=== PATIENT | female | born 1935 | race Caucasian/White ===

== ENCOUNTER 2022-02-06 10:10 | Outpatient (CLI) | payer MEDICARE, BC, SELFPAY ==
--- NOTE | 2022-02-06 11:00 | CRLHL7_ITS ---
For Patients: As a result of the Century Cures Act, medical imaging exams and procedure reports are released immediately into your electronic medical record. You may view this report before your referring provider. If you have questions, please contact your health care provider. Indication: FOLLOW UP COLORECTAL CANCER Technique: Postcontrast CT chest, abdomen and pelvis. 76 cc Isovue 370 intravenous contrast. Please note that all CT scans at this facility use dose modulation, iterative reconstruction, and/or weight-based dosing when appropriate to reduce radiation dose to as low as reasonably achievable. Comparison: 10/31/2021, 08/30/2021 Findings: In the chest, the left thyroid lobe is heterogeneous and enlarged, as before. Similar appearance of several subcentimeter mediastinal lymph nodes in the pretracheal region measuring up to 9 millimeters. No hilar adenopathy. Normal axillary lymph nodes. No suspicious pulmonary nodule. No infiltrate or edema. No effusion or pneumothorax. Mild dependent atelectasis/scarring. Degenerative disc disease. No fracture. No intrinsic osseous lesion. In the abdomen, there is a stable subcentimeter cyst at the inferior aspect of the liver. Small focus of fat deposition within the liver adjacent to the falciform ligament. No suspicious hepatic lesion. Calcified gallstone in the gallbladder lumen measuring 1.4 cm is unchanged. No biliary obstruction or gallbladder wall thickening. Unremarkable pancreas. The spleen is normal. Atherosclerotic disease in the aorta. No aneurysm. Right kidney and right adrenal gland normal. Postop changes left nephrectomy no retroperitoneal or mesenteric adenopathy. In the pelvis, there are postoperative changes of right hemicolectomy with intact anastomosis. No bowel obstruction, free air or free fluid. Uterine pessary device again noted. Stable small left ovarian cyst. Sigmoid diverticulosis. No diverticulitis. Impression: No significant change since the most recent study. Stable numerous subcentimeter mediastinal lymph nodes. No enlarged lymph nodes are present within the chest, abdomen and pelvis. No hepatic lesion. Status post right hemicolectomy and left nephrectomy. No suspicious pulmonary nodule. Please note that all CT scans at this facility use dose modulation, iterative reconstruction, and/or weight-based dosing when appropriate to reduce radiation dose to as low as reasonably achievable. Dictated by Miles Clements MD @ 02/06/2022 12:00:10 PM (Electronically Signed)
== END 2022-02-06 10:11 | disposition home or self-care (01) ==
LOC: CT 10:12
PROVIDERS: PCP Family Medicine; Visit Provider Internal Medicine Hematology & Oncology
DX: C18.9 Malignant neoplasm of colon, unspecified (principal)
CPT/HCPCS: 36415; 71260; 74177; 80053; 82378; 82728; 85025; Q9967

== ENCOUNTER 2022-03-04 08:12 | Outpatient (CLI) | payer MEDICARE, BC, SELFPAY ==
--- OUTSIDE RECORDS SUMMARY | 2022-03-04 08:15 | XMS_ITS | Clinical Summary ---
:1935 Author Organization [facility] Address [place] [address] Care Team Providers Name Role Phone Skinny Jean Baptiste RN Unavailable Deepa Kunz MD Unavailable Keyla Golden MD Primary Care Provider [phone] Allergies No known active allergies Medications Medication Sig Dispensed Refills Start Date End Date Status acetaminophen (TYLENOL) Take 31.3 mL 118 mL 0 03/01/2021 Active 160 mg/5 mL (1000 mg) by suspensionIndications: mouth every 6 Malignant neoplasm of hours if needed. 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 Encounters Date Type Specialty Care Team Description 12/17/2021 Telephone Bharat Alvares MD Kendra ointment from Last 3 Months Immunizations Name Administration Dates Next Due AMB Influenza, IIV3 (Age >=3 years)(Flu 03/27/2009 Clinic Only) Influenza, IIV3 (Age >=3 years) 05/24/2006, 04/21/2004, 03/24 Family History Medical History Relation Name Comments Heart Disease Father rhumatic fever a s child Arthritis Mother Relation Name Status Comments Father Mother Social History Tobacco Use Types Packs/Day Years Used Date Never Smoker Smokeless Tobacco: Never Used Tobacco Cessation: Counseling Given: No Alcohol Use Standard Drinks/Week Comments Yes 1.7 (1 standard drink = 0.6 oz pure alco hol) rarely Alcohol Habits Answer Date Recorded How often do you have a drink containing alcohol? Not asked How many drinks containing alcohol do you have on a typical Not asked day when you are drinking? How often do you have six or more drinks on one occasion? No t asked Comment: rarely 01/17/2021 Sex Assigned at Date Recorded Not on file Obstetrics History Para Term AB IAB SAB Ectopic Multiple Living Live Births 2 Date Outcome GA Total Labor/2nd/3rd Weight Sex Delivery Anes PTL Ana Laura A 1 A5 Name Clin Labor Last Filed Vital Signs Vital Sign Reading Time Taken Comments Blood Pressure 176/72 03/09/2021 10:44 AM CDT Pulse 80 03/09/2021 10:44 AM CDT Temperature 36.9 ??C (98.4 ??F) 03/09/2021 10:44 AM CDT Respiratory Rate 18 03/01/2021 8:00 AM CDT Oxygen Saturation 92% 03/01/2021 8:00 AM CDT Inhaled Oxygen Concentration - - Weight 69.1 kg (152 lb 6.4 oz) 03/09/2021 10:44 AM CDT Height 165.1 cm (5' 5) 03/09/2021 10:44 AM CDT Body Mass Index 25.36 03/09/2021 10:44 AM CDT Plan of Treatment Health Maintenance Due Date Last Done Comments Tdap 10/16/1946 Depression screening for age 12+ 1948 Zoster (shingles) series for age 0410/15/1986 50+ (1 of 2) Medicare Wellness for age 65+ 2001 Pneumococcal series for age 65+ (1 2001 - PCV) Tetanus booster 01/14/2021 01/14/2011 (Declined) COVID-19 vaccine series (4 - 11/30/2021 08/02/2021, 021, Booster for Pfizer series) 08/08/2020 Influenza for age 65+ 02/21/2022 03/27/2009, 05/24/2006, 04/21/2004, Additional history exists BMI (ht and wt on same day) for 03/09/2022 03/09/2021 age 18+ DEXA/DXA scan for age 65+ Completed 07/07/2009 Results Not on filefrom Last 3 Months Insurance Payer Benefit Plan / Subscriber ID Effective Dates Phone Addre ss Type Group MEDICARE PART A MEDICARE PART A [id number] 2001-Presen ATTN: CLAIMS - HB USE ONLY HB ONLY t [address] [facility] [address] MEDICARE PART B MEDICARE PART B [id number] 2002-Presen ATTN: CLAIMS - HB USE ONLY HB ONLY t [address] [place] [address] BLUE [employer]OSS BLUE [place]OSS [id number] 2016-Presen [address] [address] [place] [id number] BLUE [place]OSS [place] BLUE [place] [id number] 2016-Presen [address] [address] [place] [id number] Advance Directives Latest Code Status on File Code Status Date Activated Date Inactivated Comments Full Code 02/22/2021 11:44 AM 03/01/2021 2:32 PM Code Status Discussion: Not Discussed Care Teams Element Winding Machine Tender Relationship Specialty Start Date End Date Keyla Golden MD PCP - General Family Practice 01/18/211999 [place] [address] Skinny Jean Baptiste, RN Nurse Navigator Registered Nurse 01/18/[address] [place] [id number] Deepa Kunz MD Surgery - General 01/18/[address] [place] [id number]
--- OUTSIDE RECORDS SUMMARY | 2022-03-04 08:15 | XMS_ITS | Encounter Summary ---
:1935 Author Care Team Providers Name Role Phone Keyla Golden MD Primary Care Provider [phone] Reason for Visit Follow up - Review imaging Assessment and Plan 1. Malignant tumor of kidney Good news that her abdomen was clear. 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 For this, I'll have her f/u wit h Med Onc. I'll have the nurse coordinator help with this. Her next imaging will be dependent on Med Onc input. We will likely repeat imaging in 3-6 months. Discussion Note: None recorded.Patient educational handouts: No information available. Plan of Care Reminders Provider Appointments None recorded. ? ? Lab None recorded. ? ? Referral None recorded. ? ? Procedures None recorded. ? ? Surgeries None recorded. ? ? Imaging None recorded. ? ? Medications Name Start Date ? ? fluticasone propionate 50 mcg/actuation nasal spray,braden spension ? INHALE 2 SPRAYS INTO EACH NOSTRIL ONCE DAILY. multivitamin ? Vitamin D3 ? Medications Administered None recorded. Vitals Height Weight BMI 5 ft 5 in 155 lbs 25.8 kg/m2 Results Lab Results None recorded. Allergies Code Code System Name Reaction Severity Onset NKDA ? ? ? Problems Name Status Onset Date Source ? 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 Malignant Tumor of Kidney Active 01/07/2022 ? Procedures Date Name Performed by ? 11/21/2020 Colonoscopy Information not avai lable 12/27/2021 CT, Chest + Abdomen + Pelvis, W/ Contras t Information not available Vaccine List None recorded. Social History Tobacco Smoking Status Never Smoker What was the date of your most recent tobacco screening? What is your level of alcohol consumption? Occasional What is your level of caffeine consumption? Occasional Family History Relation Problem Onset Age of Age Notes Father No current problems or (No Information) N/A ( No Notes) disability Mother No current problems or (No Information) N/A ( No Notes) disability Functional Status Unknown. Past Encounters 01/07/2022 Malignant Tumor of Kidney Warren Squires MD: [address] [place] [address], Ph. 12/12/2021 Atrophic Vaginitis Warren Squires MD: [address] [place] [address], Ph. History of Present Illness Note: <div>Here to f/u for her kidney cancer. She had a CT scan last month that showed a clear renal fossa and retroperitoneum. There was, however, mediastinal lymphadenopathy; max size 7mm. </div><div>
</div><div>She is active and overall healthy. She has a grandmother that lived to [facility]. </div><div>
</div> Review of Systems ? Comprehensive General Adult ROS Reported By: Patient Constitutional: Constitutional: no fever, no chills Eyes: Eyes: no dry eyes, no vision change, no irritation Endocrine: Endocrine: no fatigue, no in creased thirst Cardiovascular: Cardiovascular: no chest sergio n, no palpitations Integumentary: Skin: no rashes, no change i n skin color Respiratory: Respiratory: no wheezing, no cough, no shortness of breath Genitourinary: Genitourinary: no incontinen ce, no difficulty urinating Physical Exam ? Notes: <div>Standard Measurements: Patient was moderately overweight.
General Appearance: Well nourished. In no acute distress.
Back: No costovertebral angle tenderness.
Abdomen : No mass was palpated in the abdomen.
Neurological: Cognitive functioning was normal. No confusion or disorientation.
Skin: No visible lesions
Psych: Normal mood and affect</div>
--- OUTSIDE RECORDS SUMMARY | 2022-03-04 08:15 | XMS_ITS | Encounter Summary ---
:1935 Author Care Team Providers Name Role Phone Keyla Golden MD Primary Care Provider [phone] Reason for Visit None recorded. Assessment and Plan 1. Atrophic vaginitis ? urinalysis, dipstick ? Estrace 0.01% (0.1 mg/gram) vaginal c ream Discussion Note: None recorded.Patient educational handouts: No information available. Plan of Care Reminders Provider Appointments None recorded. ? ? Lab Urinalysis, Dipstick 12/12/2021 ? Referral None recorded. ? ? Procedures None recorded. ? ? Surgeries None recorded. ? ? Imaging None recorded. ? ? Medications Name Start Date ? ? fluticasone propionate 50 mcg/actuation nasal spray,braden spension ? INHALE 2 SPRAYS INTO EACH NOSTRIL ONCE DAILY. multivitamin ? Vitamin D3 ? Medications Administered None recorded. Vitals Height Weight BMI 5 ft 5 in 160 lbs 26.6 kg/m2 Results Lab Results Date Name Specimen Result Interpretation Description Value Range Status Address ? 12/12/2021 Urinalysis, ? Color-Status Straw ? ? Dipstick ? ? ? Clarity-Status Slightly Cloudy ? Glucose-Status Negative ? Bilirubin-Status Negative ? Ketones-Status Negative ? Sp [place]-Status 1.020 ? pH-Status 6.0 ? Protein-Status 5.0 ? Urobilinogen-Status 0.2 ? Nitrates-Status negative ? Blood-Status Small ? Leuko-Status Large ? Specimen Type Voided ? ? Allergies Code Code System Name Reaction Severity Onset NKDA ? ? ? Problems Name Status Onset Date Source ? 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 Malignant Tumor of Kidney Active 01/07/2022 ? Procedures Date Name Performed by ? 11/21/2020 Colonoscopy Information not avai lable Vaccine List None recorded. Social History Tobacco [...] Notes) disability Functional Status Unknown. Past Encounters 12/12/2021 Atrophic Vaginitis Warren Squires MD: [address] [place] [address], Ph. History of Present Illness None recorded. Review of Systems ? Comprehensive General Adult ROS Reported By: Patient Constitutional: Constitutional: no fever, no chills Eyes: Eyes: no dry eyes, no vision change, no irritation Endocrine: Endocrine: no fatigue, no in creased thirst Cardiovascular: Cardiovascular: no chest sergio n, no palpitations Integumentary: Skin: no rashes, no change i n skin color Respiratory: Respiratory: no wheezing, no cough, no shortness of breath Gastrointestinal: Gastrointestinal: no abdomin al pain, no nausea, no vomiting, no constipation, no GERD Musculoskeletal: Musculoskeletal: no neck sergio n, no back pain Neurologic: Neurologic: no tremor, no di zziness, no numbness, no headaches Genitourinary: Genitourinary: no difficulty urinating, urinary loss of control ENMT: Ears: no ear pain. Mouth/Thr oat: no sore throat Allergic/Immunologic: Allergy/Immunologic: no itch ing, no hives Hematologic/Lymphatic: Hematologic/Lymphatic no swo llen glands, no excessive bleeding Psychiatric: Psych: no hallucinations, (n ormal) sleep disturbances: mismatch of sleep / wake justus edule with lifestyle needs Physical Exam None recorded.
--- OUTSIDE RECORDS SUMMARY | 2022-03-04 08:15 | XMS_ITS ---
:1935 Author Care Team Providers Name Role Phone ZAY LEVY MD Primary Care Provider [phone] Allergies Code Code System Name Reaction Severity Status Onset NKDA ? Medications Name Status Start Date Stop Date ? ? azithromycin 250 mg tablet Completed ? 09/26 TAKE 2 TABLETS BY MOUTH ON DAY 1, THEN 1 TABLET DAILY ON DAYS 2 -5. cefuroxime axetil 500 mg tablet Completed ? 01/07/2022 TAKE ONE TABLET BY MOUTH TWICE DAILY Estrace 0.01% (0.1 mg/gram) vaginal cream Completed ? 01/07/2022 place 1 gram (pea size) amount intravaginally twice per week fluticasone propionate 50 mcg/actuation nasal spray,suspension A ctive ? Not available INHALE 2 SPRAYS INTO EACH NOSTRIL ONCE DAILY. metronidazole 500 mg tablet Completed ? 02/22 Take as indicated on bowel prep instructions multivitamin Active ? Not available neomycin 500 mg tablet Completed ? Take as indicated on bowel prep instructions. ondansetron 4 mg disintegrating tablet Completed ? 03/15/2021 Take as indicated on bowel prep instructions. ondansetron 8 mg disintegrating tablet Completed ? 01/18/2021 DISSOLVE ONE TABLET IN MOUTH THREE TIMES DAILY NEEDED oxycodone 5 mg tablet Completed ? 03/15/2021 prednisone 20 mg tablet Completed ? 01/08/20 TAKE ONE TABLET BY MOUTH ONE TIME DAILY Vitamin D3 Active ? Not available Problems Name Status Onset Date Source ? Malignant Tumor of Kidney Unknown 03/15/2021 ? 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 Malignant Tumor of Kidney Active 01/07/2022 ? Procedures Date Name Performed by ? 11/21/2020 Colonoscopy Information not avai lable 06/05/2021 CT, Chest + Abdomen + Pelvis, W/ Informa tion not available Contrast 09/26/2021 CT, Chest + Abdomen + Pelvis, W/ [facility] Radiology Department Contrast [address] [place] [address] ([address]) 12/27/2021 CT, Chest + Abdomen + Pelvis, W/ Informa tion not available Contrast Results Lab Results Date Name Specimen Result Interpretation Description Value Range Status Address ? 12/12/2021 Urinalysis, ? Color-Status Straw ? ? Dipstick ? ? ? Clarity-Status Slightly Cloudy ? Glucose-Status Negative ? Bilirubin-Status Negative ? Ketones-Status Negative ? Sp [place]-Status 1.020 ? pH-Status 6.0 ? Protein-Status 5.0 ? Urobilinogen-Status 0.2 ? Nitrates-Status negative ? Blood-Status Small ? Leuko-Status Large ? Specimen Type Voided ? ? 09/26/2021 Urinalysis, ? pH-Status 7.0 ? ? Dipstick ? ? ? Blood-Status Trace ? Leuko-Status Small ? ? 09/26/2021 Urinalysis, ? No observation ? ? ? Dipstick recorded. 09/26/2021 Urinalysis, ? No observation ? ? ? Dipstick recorded. 07/31/2021 Urinalysis, ? Color-Status Yellow ? ? Dipstick ? ? ? Clarity-Status Clear ? Glucose-Status Negative ? Bilirubin-Status Negative ? Ketones-Status Negative ? Sp [place]-Status 1.015 ? pH-Status 7.5 ? Urobilinogen-Status 0.2 ? Nitrates-Status negative ? Blood-Status Trace ? Leuko-Status Negative ? Specimen Type Voided ? Performed by nichelle buckner RN ? Total Urine Volume 30cc ? ? 07/31/2021 Urinalysis, ? No observation ? ? ? Dipstick recorded. 06/06/2021 Urinalysis, ? pH-Status 7.5 ? ? Dipstick ? ? ? Nitrates-Status negative ? Blood-Status Trace ? Leuko-Status Negative ? Specimen Type Voided ? ? 06/06/2021 Urinalysis, ? No observation ? ? ? Dipstick recorded. 02/22/2021 Surgical Pathology ? No observation ? ? ? Study recorded. Past Encounters 01/07/2022 Malignant Tumor of Kidney Warren Squires MD: [address], [place] [address], Ph. 12/12/2021 Atrophic Vaginitis Warren Squires MD: [address], [place] [address], Ph. 09/26/2021 Prolapse of Female Genital Organs; Malig nant Tumor of Kidney; Female Stress Incontinence Tracie Estrada, PAC: [address], [place] [address], Ph. 07/31/2021 Malignant Tumor of Kidney; Female Stress Incontinence; Prolapse of Female Genital Organs Augusta Bermudez MD: [address], [place] [address], Ph. 07/11/2021 Female Stress Incontinence; Increased Fr equency of Urination; Malignant Tumor of Kidney GET Pederson: [address], [place] [address], Ph. 06/06/2021 Female Stress Incontinence; Increased Fr equency of Urination; Malignant Tumor of Kidney Martha Prado PA: [address], [place] [address], Ph. 03/15/2021 Malignant Tumor of Kidney Warren Squires MD: [address], [place] [address], Ph. 01/18/2021 Renal Mass Warren Squires MD: [address], [place] [address], Ph. Social History Tobacco Smoking Status Never Smoker Vaccine List None recorded. Plan of Care Reminders Provider Appointments None recorded. ? ? Lab None recorded. ? ? Referral None recorded. ? ? Procedures None recorded. ? ? Surgeries None recorded. ? ? Imaging None recorded. ? ? Vitals 01/07/2022 10:40AM ESTABLISHED 10 Height Weight BMI 5 ft 5 in 155 lbs 25.8 kg/m2 12/12/2021 12:00PM ESTABLISHED 30 Height Weight BMI 5 ft 5 in 160 lbs 26.6 kg/m2 09/26/2021 02:40PM ESTABLISHED 20 Height Weight BMI 5 ft 5 in 160 lbs 26.6 kg/m2 07/31/2021 11:30AM PROLAPSE CONSULT 30 Height Weight BMI 5 ft 5 in 160 lbs 26.6 kg/m2 07/11/2021 01:30PM ESTABLISHED 30 Height Weight BMI 5 ft 5 in 160 lbs 26.6 kg/m2 06/06/2021 03:30PM ESTABLISHED 30 Height Weight BMI 5 ft 5 in 160 lbs 26.6 kg/m2 03/15/2021 11:00AM POST OP 10 Height Weight BMI 5 ft 5 in 160 lbs 26.6 kg/m2 01/18/2021 11:30AM NEW PATIENT 20 Height Weight BMI 5 ft 5 in 160 lbs 26.6 kg/m2
== END 2022-03-04 08:13 | disposition home or self-care (01) ==
LOC: OP CLINIC 08:13
PROVIDERS: PCP Family Medicine; Visit Provider Surgery
DX: Z85.038 Personal history of other malignant neoplasm of large intestine (principal); K63.5 Polyp of colon; K57.30 Diverticulosis of large intestine without perforation or abscess without bleeding
CPT/HCPCS: 45380; 45385; 88305; 99153; J2250; J3010

== ENCOUNTER 2022-03-20 09:32 | Day surgery (SDC) | payer MEDICARE, BC, SELFPAY ==
[2022-03-20] MEDS: TETRACAINE 0.5% OPHTH 1 DROP EYE-RIGHT ×2 (09:55→10:05)
[2022-03-20 09:56] VITALS: BMI 29.5
[2022-03-20] MEDS: KETOROLAC OPHTH 0.5% 1 DROP EYE-RIGHT ×2 (10:03→10:11)
[2022-03-20 10:06] VITALS: BP 133/63; PULSE 69; RESP 20; TEMP 36.5; O2SAT 98
[2022-03-20] MEDS: SODIUM CHLORIDE 0.9 % (FLUSH) 10 ML SYRINGE IVF (10:15)
[2022-03-20] MEDS: TETRACAINE 0.5% OPHTH 2 DROP EYE-RIGHT (10:55)
[2022-03-20] MEDS: BALANCED SALT IRRIG SOLN 15 ML EYE-RIGHT (11:01)
[2022-03-20] MEDS: ERYTHROMYCIN OPHTH OINT 3.5 GM 1 APPLIC EYE-RIGHT (11:25)
--- NOTE | 2022-03-20 11:32 | W.ANESCHARGE ---
Anesthesia Charges Start Date/Time Anesthesia Start Date: 03/20/22 Anesthesia Start Time: 10:50 Stop Date/Time Anesthesia Stop Date: 03/20/22 Anesthesia Stop Time: 11:30 Summary Emergency: No Extremes of Age: Over 70-CPT 39424
[2022-03-20 11:42] VITALS: BP 173/79; PULSE 69; RESP 16; TEMP 36.6; O2SAT 99
--- NOTE | 2022-03-26 08:48 | P.OPTPRC_ITS ---
Procedure Note Date of procedure: 03/20/22 Will [facility] bill your pro fee for this procedure?: Yes Procedure Description: SURGEON: Margarita Hester MD PREOPERATIVE DIAGNOSIS: Nuclear sclerotic cataract, right eye. POSTOPERATIVE DIAGNOSIS: Nuclear sclerotic cataract, right eye. NAME OF OPERATION: Phacoemulsification of cataract with posterior chamber intraocular lens implantation in the right eye. ANESTHESIA: Topical. ESTIMATED BLOOD LOSS: Less than 2 cc. COMPLICATIONS: None. PATHOLOGY SPECIMEN: None. INDICATIONS: See consult note for details. The risks, benefits and alternatives of the procedure were explained to the patient, who elected to proceed and s igned informed consent to do so. PROCEDURE: The patient was brought to the pre-holding area where the right eye was identified as the operative eye. I placed my initials above this eye. The patient received eye drops consisting of 0.5% tetracaine, 1% tropicamide, 10% phenylephrine, and 0.5% ketorolac. The patient was given 12.5 grams IV mannitol and a [place] balloon was placed for 8 minutes pre-operatively. The patient was then brought to the operating room where the right eye was again identified as the operative eye. The eye was prepped with Betadine and draped in the usual sterile ophthalmic fashion. A #15 super-sharp blade was used to create a paracentesis site. 1% non-preserved intracameral lidocaine was injected into the anterior chamber. Endocoat was injected into the anterior chamber. A 2.4 mm keratome was used to create a three-plane self-sealing incision 1 mm anterior to the temporal limbus. A cystotome was used to create an anterior capsular leaflet. The Utrata forceps were used to extend this to form a continuous curvilinear capsulorrhexis. Hydrodissection was performed. The cataract was removed with phacoemulsification using the [id number] technique. The irrigation and aspiration tip was used to remove the remaining cortex. Healon was injected into the capsular bag. An BAILEE ZCB00 intraocular lens of 25.0 diopters was injected into the capsular bag. The irrigation and aspiration tip was used to remove the remaining viscoelastic. Balanced salt solution on a cannula was used to hydrate the wound, and the wound was found to be watertight. The pupil was noted to be round. A small corneal abrasion was noted anterior to the incision, therefore erythromycin ophthalmic ointment was placed in the eye. DISPOSITION: The patient was taken to the recovery room and discharged to home in stable condition. The patient was informed of the corneal abrasion and instructed to use the erythromycin ophthalmic ointment 3 more times today. The patient was instructed to call me or go to the emergency department with any sudden change, including dramatic loss of vision, severe pain in the eye or eyebrow region, nausea, or vomiting. The patient will follow up in the clinic tomorrow morning. Surgeon: Margarita Hester MD
== END 2022-03-20 12:15 | disposition home or self-care (01) ==
LOC: OR 09:33
PROVIDERS: PCP Family Medicine; Visit Provider Ophthalmology
PROC: (CPT 66984; principal; 2022-03-20 09:45)
DX: H25.11 Age-related nuclear cataract, right eye (principal)
CPT/HCPCS: 66984; 00142; 99100; A9270; J2150; J2250; J3010; V2632

== ENCOUNTER 2022-04-03 10:16 | Day surgery (SDC) | payer MEDICARE, BC, SELFPAY ==
[2022-04-03] MEDS: KETOROLAC OPHTH 0.5% 1 DROP EYE-LEFT ×2 (10:25→10:30)
[2022-04-03] MEDS: TETRACAINE 0.5% OPHTH 1 DROP EYE-LEFT ×2 (10:25→10:30)
[2022-04-03 10:41] VITALS: BP 160/68; PULSE 65; RESP 16; TEMP 36.1; O2SAT 97; BMI 29.5
[2022-04-03] MEDS: SODIUM CHLORIDE 0.9 % (FLUSH) 10 ML SYRINGE IVF (10:50)
--- NOTE | 2022-04-03 11:37 | SUR.PREOP ---
ERICH APPLIED BY SURGEON AND INFLATED AT 1135.
[2022-04-03] MEDS: TETRACAINE 0.5% OPHTH 2 DROP EYE-LEFT (11:50)
[2022-04-03] MEDS: BALANCED SALT IRRIG SOLN 15 ML EYE-LEFT (11:56)
--- NOTE | 2022-04-03 11:57 | W.ANESCHARGE ---
Anesthesia Charges Start Date/Time Anesthesia Start Date: 04/03/22 Anesthesia Start Time: 11:47 Stop Date/Time Anesthesia Stop Date: 04/03/22 Anesthesia Stop Time: 12:22 Summary Emergency: No Extremes of Age: Over 71-CPT [id number]
--- NOTE | 2022-04-03 12:26 | W.ANESCHARGE ---
Anesthesia Charges Start Date/Time Anesthesia Start Date: 04/03/22 Anesthesia Start Time: 11:47 Stop Date/Time Anesthesia Stop Date: 04/03/22 Anesthesia Stop Time: 12:22 Summary Emergency: No Extremes of Age: Over 71-CPT 45027
[2022-04-03 12:28] VITALS: BP 164/70; PULSE 67; RESP 16; TEMP 36.2; O2SAT 99
--- NOTE | 2022-04-03 13:12 | W.PM.OPTPROC ---
Procedure Note Date of procedure: 04/03/22 Will [facility] bill your pro fee for this procedure?: Yes Procedure Description: SURGEON: Margarita Hester MD PREOPERATIVE DIAGNOSIS: Mature cataract, left eye. POSTOPERATIVE DIAGNOSIS: Mature sclerotic cataract, left eye. NAME OF OPERATION: Phacoemulsification of cataract with posterior chamber intraocular lens implantation in the left eye. ANESTHESIA: Topical. ESTIMATED BLOOD LOSS: Less than 2 cc. COMPLICATIONS: None. PATHOLOGY SPECIMEN: None. INDICATIONS: See consult note for details. The risks, benefits and alternatives of the procedure were explained to the patient, who elected to proceed and signed informed consent to do so. PROCEDURE: The patient was brought to the pre-holding area where the left eye was identified as the operative eye. I placed my initials above this eye. The patient received eye drops consisting of 0.5% tetracaine, 1% tropicamide, 10% phenylephrine, and 0.5% ketorolac. The patient was given 12.5 grams IV mannitol and a Honan balloon was placed for 8 minutes pre-operatively. The patient was then brought to the operating room where the left eye was again identified as the operative eye. The eye was prepped with Betadine and draped in the usual sterile ophthalmic fashion. A #15 super-sharp blade was used to create a paracentesis site. 1% non-preserved intracameral lidocaine was injected into the anterior chamber. Endocoat was injected into the anterior chamber. A 2.4 mm keratome was used to create a three-plane self-sealing incision 1 mm anterior to the temporal limbus. A cystotome was used to create an anterior capsular leaflet. The Utrata forceps were used to extend this to form a continuous curvilinear capsulorrhexis. Hydrodissection was performed. The cataract was removed with phacoemulsification using the fvclma-pup-zuxqtsa technique. The irrigation and aspiration tip was used to remove the remaining cortex. Healon was injected into the capsular bag. An BAILEE ZCB00 intraocular lens of 25 point diopters was injected into the capsular bag. The irrigation and aspiration tip was used to remove the remaining viscoelastic. Balanced salt solution on a cannula was used to hydrate the wound, and the wound was found to be watertight. The pupil was noted to be round. DISPOSITION: The patient was taken to the recovery room and discharged to home in stable condition. The patient was instructed to call me or go to the emergency department with any sudden change, including dramatic loss of vision, severe pain in the eye or eyebrow region, nausea, or vomiting. The patient will follow up in the clinic tomorrow morning. Surgeon: Margarita Hester MD
== END 2022-04-03 12:58 | disposition home or self-care (01) ==
PROVIDERS: PCP Family Medicine; Visit Provider Ophthalmology
PROC: (CPT 66984; principal; 2022-04-03 10:30)
DX: H25.89 Other age-related cataract (principal)
CPT/HCPCS: 66984; 00142; 99100; A9270; J2150; J2250; J3010; V2632

== ENCOUNTER 2022-05-27 14:47 | Emergency (ER) | payer MEDICARE, BC, SELFPAY ==
[2022-05-27 15:42] VITALS: BP 189/102; PULSE 80; RESP 14; TEMP 36.7; O2SAT 98; BMI 25.0
--- NOTE | 2022-05-27 15:46 | CRLHL7_ITS ---
For Patients: As a result of the Century Cures Act, medical imaging exams and procedure reports are released immediately into your electronic medical record. You may view this report before your referring provider. If you have questions, please contact your health care provider. Indication: Fall. Technique: Left wrist, 3 views Comparison: None. Findings: Bones: The bones are demineralized. Comminuted and impacted distal radial fracture appears intra-articular and shows dorsal angulation. Joint spaces: Diffuse degenerative changes. Soft tissues: Soft tissue swelling about the wrist. Impression: Distal radial fracture. Dictated by Sung Iglesias MD @ 05/27/2022 4:55:10 PM (Electronically Signed)
--- NOTE | 2022-05-27 15:49 | CRLHL7_ITS ---
For Patients: As a result of the Century Cures Act, medical imaging exams and procedure reports are released immediately into your electronic medical record. You may view this report before your referring provider. If you have questions, please contact your health care provider. INDICATION: Fall TECHNIQUE: CT head without contrast. COMPARISON: None FINDINGS: CSF spaces: Within normal limits for age. Brain parenchyma: The nunn-white differentiation is normal. No sign of mass, hemorrhage, or midline shift. Skull base and calvarium: The visualized paranasal sinuses and mastoid air cells demonstrate no acute or significant findings. The visualized orbits are grossly unremarkable. No skull fractures. Left periorbital hematoma IMPRESSION: No evidence of acute intracranial trauma. No orbital hematoma. Dictated by Miles Raza MD @ 05/27/2022 4:36:24 PM Please note that all CT scans at this facility use dose modulation, iterative reconstruction, and/or weight-based dosing when appropriate to reduce radiation dose to as low as reasonably achievable. Dictated by: Miles Raza MD @ 05/27/2022 16:36:29 (Electronically Signed)
[2022-05-27 17:02] VITALS: BP 168/74; PULSE 84; RESP 16; TEMP 36.7; O2SAT 99
--- NOTE | 2022-05-27 17:04 | ED.NURSE ---
vital signs rechecked.
--- NOTE | 2022-05-27 18:57 | ED.NURSE ---
did not want to wait for dc instructions. was verbally dc to home with daughter. has orthoglass splint in place and has a sling. understands that there will be a call from orthopedics for follow up. daughter reports that she will stay with her and understood the follow up from dr abreu.
--- OUTSIDE RECORDS SUMMARY | 2022-05-27 19:05 | XMS_ITS ---
:1935 Author Care Team Providers Name Role Phone ZAY LEVY MD Primary Care Provider [phone] Allergies Code Code System Name Reaction Severity [...] [facility] Radiology Department Contrast [address] [place] [address] (Work Place) 12/27/2021 CT, Chest + Abdomen + Pelvis, W/ Informa tion not available Contrast Results Lab Results Date Name Specimen Result Interpretation Description Value Range Status Address ? 12/12/2021 Urinalysis, ? Color-Status Straw ? ? Dipstick ? ? ? Clarity-Status Slightly Cloudy ? Glucose-Status Negative ? Bilirubin-Status Negative ? Ketones-Status Negative ? Sp [place]-Status 1.020 ? pH-Status 6.0 ? Protein-Status 5.0 [...] Bilirubin-Status Negative ? Ketones-Status Negative ? Sp [place]-Status 1.015 ? pH-Status 7.5 ? Urobilinogen-Status 0.2 [...] ? ? ? Study recorded. Past Encounters Encounter Date Diagnosis Provider 01/07/2022 Malignant Tumor of Kidney Warren house MD: [address], [place] [address], Ph. 12/12/2021 Atrophic Vaginitis Warren Squires MD: [address], [place] [address], Ph. 09/26/2021 Prolapse of Female Genital Organs; Tracie Estrada, PAC: [address] Malignant Tumor of Kidney; Female [address], [place], [place] Stress Incontinence [address], Ph. 07/31/2021 Malignant Tumor of Kidney; Female Lioudm trae Bermudez MD: [address] Stress Incontinence; Prolapse of [address], [place], [place] Female Genital Organs [address], Ph. 07/11/2021 Female Stress Incontinence; Martha cruz PA: [address] Increased Frequency of Urination; [address], [place], [place] Malignant Tumor of Kidney [address], Ph . 06/06/2021 Female Stress Incontinence; Martha cruz PA: [address] of Ur[address]; [address], [place], [place] Malignant Tumor of Kidney [address], Ph . 03/15/2021 Malignant Tumor of Kidney Warren house MD: [address], [place] [address], Ph. 01/18/2021 Renal Mass Warren Squires MD: [address], [place] [address], Ph. Social History Tobacco Smoking Status Never [...]
--- OUTSIDE RECORDS SUMMARY | 2022-05-27 19:05 | XMS_ITS | Clinical Summary ---
:1935 Author Organization [facility] [place] [address] Care Team Providers Name Role Phone Skinny Jean Baptiste RN Unavailable Deepa Kunz MD Unavailable Keyla Golden MD Primary Care Provider Allergies No known active allergies Medications Medication [...] Encounters Date Type Specialty Care Team Description 04/29/2022 Orders Only Scanner <No scans attac hed> 04/29/2022 Orders Only Scanner <No scans attac hed> 03/04/2022 Lab Requisition Kirstie Roe MD from Last 3 Months Immunizations Name Administration [...] 01/14/2011 (Declined) COVID-19 vaccine series (4 - 09/27/2021 08/02/2021, 021, Booster for Pfizer series) 08/08/2020 Influenza for age 65+ 02/21/2022 03/27/2009, 05/24/2006, 04/21/2004, Additional history exists BMI (ht and wt on same day) for 03/09/2022 03/09/2021 age 18+ DEXA/DXA scan for age 65+ Completed 07/07/2009 Procedures Procedure Name Priority Date/Time Associated Diagnosis Comme nts SCAN 04/29/2022 12:00 AM Results for this CORRESP-LABORATORY WHIPPED TOPPING FINISHER procedure are in RESULTS the results section. SCAN 04/29/2022 12:00 AM Results for this CORRESP-LABORATORY WHIPPED TOPPING FINISHER procedure are in RESULTS the results section. LAB TRACKING EVENT Routine 03/04/2022 9:40 AM CDT PATH TISSUE EXAM Routine 03/04/2022 9:40 AM Resul ts for this CDT procedure are i n the results section. from Last 3 Months Results SCAN CORRESP-LABORATORY RESULTS (04/29/2022 12:00 AM WHIPPED TOPPING FINISHER)Only the most recent of 2 resultswithin the time period is included. Narrative This result has an attachment that is no t available. Scanner OTHER LAB TRACKING EVENT (03/04/2022 9:40 AM CDT) Specimen Anatomical Collection Method Collection Time Receive d Time (Source) Location / / Volume Laterality Other (Other) Client Collect / 03/04/2022 9:40 AM 02/21 9:41 Unknown CDT PM CDT Kirstie Roe MD LAB BILL ONLY Performing Organization Address City/State/ZIP Code Phon e Number [facility] [address] [place] [address] LABORATORY-CENTRAL 2000 LABORATORY PATH TISSUE EXAM (03/04/2022 9:40 AM CDT) Component Value Ref Test Analysis Performed At [facility] gist Range Method Time Signature Case Report Pathology Report ?Case: [id number] ? 03/06/2022 [place] Authorizing Provider: ??Kirstie Simeon MD ??Collected: ? 03/04/2022 0940 ? 2:13 PM CDT HEALTH Ordering Location: ? [facility] CENTRAL LAB ?Received: ?03/05/2022 0747 ? DARA ROBISON-[place] Pathologist: ? Santiago Suárez ? ENTRAL ? MD ART ? LABORATORY Specimens: ?? A) - Transvers e Colon Biopsy ? B) - Byrne sverse Colon Biopsy, distal ? C) - Sigm oid Biopsy ? Final A) COLON, TRANSVERSE, POLYPECTOMY: 03/06 [facility] Electronically Diagnosis 1. Tubular adenoma 2:13 PM CDT HEALTH signed by 2. Negative for high grade dysplasia LABORATORY-C Jose Armando, 3. Per the colonoscopy report: ENTRAL Santiago Bell ?? a. Polyp size: 2 mm PAUL JIMÉNEZ IV, MD on ?? b. Resection: Complete 03/06/2022 at ?? c. Retrieval: Complete 2:13 PM B) COLON, DISTAL TRANSVERSE, POLYPECTOMY: 1. Tubular adenoma 2. Negative for high grade dysplasia 3. Per the colonoscopy report: ?? a. Polyp size: 4 mm ?? b. Resection: Complete ?? c. Retrieval: Complete C) COLON, SIGMOID, POLYPECTOMY: 1. Hyperplastic polyp Clinical Ms. Quigley is a 03/06/2022 [facility] Information 86 y.o. who 2:13 PM [facility] presents for LABORATORY-C surveillance ENTRAL colonoscopy. LABORATORY Gross A) Received in formalin are 2 limon mucosal fragments ranging from 2 mm to 4 mm in greatest dimension, which are entirely submitted in one cassette. It is labeled with the patient's name and designated transverse staple line polyp. 03/06/2022 [facility] Description 2:13 PM [facility] B) Received in formalin are 7 limon mucosal fragments averaging 2 mm in greatest dimension, which are entirely submitted in one cassette. It is labeled with the patient's name and designated distal transverse polyp. LABORATORY-C ENTRAL C) Received in formalin 0.1 cm fragment. ??The base is inked black and the specimen is bisected and entirely submitted in 1 cassette. ??It is labeled with the patient's name and designated sigmoid polyp. LABORATORY Earlene Lewis 03/05/2022 9:06 AM Microscopic The final 03/06/2022 [facility] Description diagnosis is 2:13 PM [facility] based on LABORATORY-C microscopic ENTRAL examination of LABORATORY appropriate sections of all specimens. Additional 03/06/2022 [facility] Information Interpreted at [facility] Laboratory, Central Laboratory - [address] [place] [address] S. [facility] [address], [place] [address] 2:13 PM [facility] LABORATORY-C ENTRAL LABORATORY Specimen Anatomical Collection Method Collection Time Receive d Time (Source) Location / / Volume Laterality Other 03/04/2022 9:40 AM 2 7:47 (Transverse CDT AM CDT Colon Biopsy) Specimen 03/04/2022 9:40 AM 2 7:47 (specimen) CDT AM CDT (Transverse Colon Biopsy) Specimen 03/04/2022 9:40 AM 2 7:47 (specimen) CDT AM CDT (Sigmoid Biopsy) Kirstie Roe MD PATHOLOGY/CYTOLOGY Performing Organization Address City/State/ZIP Code Phon e Number [facility] [address] [place] [address] LABORATORY-CENTRAL 2000 LABORATORY from Last 3 Months Insurance Payer Benefit Plan / Subscriber ID Effective Dates Phone Addre ss Type Group MEDICARE PART A MEDICARE PART A [id number] 2001-Presen ATTN: CLAIMS - HB USE ONLY HB ONLY t [address] [place] [address] MEDICARE PART B MEDICARE PART B [id number] 2002-Presen ATTN: CLAIMS - HB USE ONLY HB ONLY t [address] [place] [address] BLUE CROSS BLUE CROSS [id number] 2016-[place]en [address] [address] [place] [employer], [place] ONLY [id number] BLUE CROSS MR BLUE CROSS [id number] 2016-Presen [address] [address] [place] [employer], [place] ONLY [id number] Advance Directives Latest Code Status on File Code Status Date Activated Date Inactivated Comments Full Code 02/22/2021 11:44 AM 03/01/2021 2:32 PM Code Status Discussion: Not Discussed Care Teams Tanning Consultant Relationship Specialty Start Date End Date Keyla Golden MD PCP - General Family Practice 01/18/211999 [place] [address] Skinny Jean Baptiste, RN Nurse Navigator Registered Nurse 01/18/21 [address] [place] [address] Deepa Kunz MD Surgery - General 01/18/21 [address] [place], [place] [id number]
--- NOTE | 2022-05-28 13:14 | ED_ITS ---
HPI - Fall General Chief Complaint: Fall/Minor Trauma Stated Complaint: Fell this morning, hurt left arm/left side head Time Seen by Provider: 05/27/22 18:12 History of Present Illness HPI Narrative: 86-year-old woman here with her daughter after a fall while going up some wooden steps. She is not anticoagulated. She did strike her head left orbital area. No visual change. Does not have any neck or back pain. There was no loss of consciousness. Did also injure her left wrist area it with notable deformity on triage. Apparently swelled up quite a bit and is now diminished somewhat. Is not complaining of much pain. No abdominal pain. Has not been vomiting. Did strike her left thigh but has been able to ambulate without notable difficulty. Sounds like slipped and fell on the stairs on her left side. History of osteopenia. Related Data Home Medications Medication Instructions Recorded Confirmed acetaminophen 500 mg tablet 500 mg PO Q6H PRN 02/13/22 04/18/22 (Tylenol Extra Strength) cholecalciferol (vitamin D3) 25 25 mcg PO QDAY 02/13/22 04/18/22 mcg (1,000 unit) capsule multivitamin 1 tab PO QAM 02/13/22 04/18/22 Allergies Allergy/AdvReac Type Severity Reaction Status Date / Time No Known Drug Allergies Allergy Verified 05/27/22 15:42 Review of Systems Status of ROS: Reports: 6 or more systems reviewed and unremarkable except as noted in History and below [facility] Medical History Cataracts, bilateral History of fracture of forearm Impaired swallowing 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 Osteopenia (2010) Renal cell cancer Vaginal pessary in situ Surgical History History of breast biopsy (06/28/11) History of cataract surgery (~03/2022) History of colectomy (02/22/21) History of left nephrectomy (02/22/21) Family History Father Rheumatic fever Brother Rheumatoid arthritis Social History Narrative: , retired, home-maker, office work, 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 Does not appear to be in particular distress. Unfortunately been waiting some time to be seen in a busy emergency department. She is only mildly favoring her left arm/wrist. Appears to be moving all extremities without difficulty. Breathing easily speaking fluidly. There is no pain to palpation over the clavicles or bony thorax. No pain to palpation of her back. No deformity appreciated. Neck is supple nontender. Cranial nerves 2-12 intact. Head with bruising purpling soft swelling in the left periorbital area but without particular pain or crepitus/step-off appreciated. Extraocular movements are full and intact as noted. No fluid visible in the ear canals. No Navarro sign. Cardiovascular with regular rate and rhythm. Abdomen is soft protuberant nontender. Examination of the left wrist shows diffuse swelling. Some tenderness at the distal radius. No snuffbox tenderness. Seems to flex and extend fingers without difficulty and against resistance. Well perfused. Const: Vital Signs, click to edit/add: Vital Signs - 24 hr 05/27/22 15:42 05/27/22 17:02 Temperature 98.1 F 98.1 F Pulse Rate [Pulse Oximeter] 80 84 Respiratory Rate 14 16 Blood Pressure [Ri ght Upper Arm] 189/102 H 168/74 H Pulse Oximetry 98 99 Oxygen Delivery Me thod Room Air Room Air Documenting provider has reviewed patient's vital signs: yes Course Vital Signs Vital signs: Initial Vital Signs Temperature 98.1 F 05/27/22 15:42 Temperature Source Temporal Artery Scan 05/27/22 15:42 Pulse Rate 80 05/27/22 15:42 Respiratory Rate 14 05/27/22 15:42 Blood Pressure 189/102 H 05/27/22 15:42 Blood Pressure Mean 131 05/27/22 15:42 Pulse Oximetry 98 05/27/22 15:42 Oxygen Delivery Method 05/27/22 15:42 Vital Signs Temperature 98.1 F 05/27/22 15:42 Pulse Rate 80 05/27/22 15:42 Respiratory Rate 14 05/27/22 15:42 Blood Pressure 189/102 H 05/27/22 15:42 Pulse Oximetry 98 05/27/22 15:42 Oxygen Delivery Method 05/27/22 15:42 Temperature 98.1 F 05/27/22 17:02 Pulse Rate 84 05/27/22 17:02 Respiratory Rate 16 05/27/22 17:02 Blood Pressure 168/74 H 05/27/22 17:02 Pulse Oximetry 99 05/27/22 17:02 Oxygen Delivery Method 05/27/22 17:02 MDM - Fall MDM Narrative Medical decision making narrative: Has been icing her wrist here. Does not appear to need anything else for pain. I would anticipate at a minimum a distal radius fracture. Three-view of the left wrist indeed shows a comminuted and impacted distal radius fracture. Reviewed by me. With evidence of head injury did scan head as well which was unremarkable for acute abnormality. I did review these images. Returned to place a dorsal volar splint which was well tolerated. She already has an arm sling. I contacted Orthopedics as well to arrange follow-up. Medical Records Attestation: I reviewed the patient's medical records. Discharge Plan Discharge Clinical Impression: Hematoma, Closed head injury, Distal radial fracture Patient Disposition: Home w/ Parent or Adult Condition: Improved Additional Instructions: I am impressed that you're not in much pain. Can take up to 1000 mg of acetaminophen or up to 800 mg of ibuprofen per dose. Might use your arm sling to elevate for comfort. Continue to ice a couple of times daily over the next few days; can remove the splint to do so. Only problem is trying to get back on by yourself. Anticipate a call from orthopedics probably by noon tomorrow. If you do not hear from them call at [phone] Return for terrible headache, repeated vomiting, increasing pain with eye movement. Prescriptions: No Action cholecalciferol (vitamin D3) 25 mcg (1,000 unit) capsule 25 mcg PO QDAY multivitamin Tablet 1 tab PO QAM acetaminophen [Tylenol Extra Strength] 500 mg tablet 500 mg PO Q6H PRN Follow Up/Referrals: Keyla Golden MD [Primary Care Provider] - Stand Alone Forms: [employer] Info Instructions
== END 2022-05-27 19:05 | disposition home or self-care (01) ==
LOC: ED 19:03
PROVIDERS: Emergency Provider Family Medicine; PCP Family Medicine
DX: S09.90XA Unspecified injury of head, initial encounter (principal); S05.12XA Contusion of eyeball and orbital tissues, left eye, initial encounter; S52.592A Other fractures of lower end of left radius, initial encounter for closed fracture; W10.9XXA Fall (on) (from) unspecified stairs and steps, initial encounter; Y93.9 Activity, unspecified; Y92.9 Unspecified place or not applicable; Y99.9 Unspecified external cause status
CPT/HCPCS: 29125; 70450; 73110; 99284

== ENCOUNTER 2022-08-20 08:00 | Outpatient (RCR) | payer MEDICARE, BC, SELFPAY ==
[2022-02-06 10:37] LABS: Basophils Absolute Auto 0.05 K/uL (0.00-0.30); Basophils Percent Auto 0.7 % (0.0-3.0); Eosinophils Absolute Auto 0.24 K/uL (0.00-0.50); Eosinophils Percent Auto 3.3 % (0.0-7.0); Hematocrit 36.8 % (33.0-51.0); Hemoglobin* 12.2 gm/dL (12.0-16.0); Immature Granulocytes Abs Auto 0.02 K/uL (0.00-0.30); Lymphocytes Absolute Auto 1.48 K/uL (0.90-2.90); Lymphocytes Percent Auto 20.4 % (20-44); Mean Corpuscular HGB Conc 33 gm/dL (32-36); Mean Corpuscular Hemoglobin 29 pg (26-34); Mean Corpuscular Volume 88 fL (80-100); Monocytes Percent Auto 9.5 % (0.0-11.0); Neutrophils Absolute Auto 4.77 K/uL (1.7-7.0); Neutrophils Percent Auto 65.8 % (42.0-72.0); Platelet Count* 271 K/uL (140-440); RDW Coefficient of Variation % 12.8 % (11.5-15.5); Red Blood Count 4.17 m/uL (4.00-5.20); White Blood Count* 7.25 K/uL (4.50-11.00)
[2022-02-06 10:39] LABS: Slide Review Reflex No
[2022-02-06 10:49] LABS: Albumin* 4.2 g/dL (3.3-5.0); Chloride* 101 mmol/L (96-114); Sodium* 136 mmol/L (135-149)
[2022-02-06 10:50] LABS: Potassium* 4.6 mmol/L (3.6-5.1)
[2022-02-06 10:52] LABS: Alanine Aminotransferase* 17 U/L (4-35); Alkaline Phosphatase* 81 U/L (40-150); Aspartate Amino Transferase* 27 U/L (12-35); Bilirubin Total* 0.4 mg/dL (0.1-1.5); Blood Urea Nitrogen* 21 mg/dL (7-30); Carbon Dioxide* 30 mmol/L (20-32); Creatinine* 1.1 mg/dL (0.5-1.5); Estimated Glomerular Filt Rate 49 ml/min; Glucose* 99 mg/dL (60-115); Total Protein* 7.9 g/dL (6.0-8.3)
[2022-02-06 10:53] LABS: Calcium* 8.9 mg/dL (8.4-10.6)
[2022-02-06 12:03] LABS: Ferritin* 23.7 ng/mL (11.1-264.0)
[2022-02-07 14:34] LABS: Carcinoembryonic Antigen 2.9 ng/mL
== END 2022-08-21 23:59 | disposition home or self-care (01) ==
LOC: CCIC 08:00
PROVIDERS: Physician Assistant Surgical; PCP Family Medicine; Visit Provider Clinical Nurse Specialist
DX: C18.9 Malignant neoplasm of colon, unspecified (principal)
CPT/HCPCS: 99212; 99213; 99214

== ENCOUNTER 2022-08-20 09:58 | Outpatient (CLI) | payer MEDICARE, BC, SELFPAY ==
[2022-08-20 10:59] LABS: Estimated Glomerular Filt Rate 55 ml/min
--- NOTE | 2022-08-20 11:00 | CRLHL7_ITS ---
For Patients: As a result of the Century Cures Act, medical imaging exams and procedure reports are released immediately into your electronic medical record. You may view this report before your referring provider. If you have questions, please contact your health care provider. INDICATION: Colon cancer. Right hemicolectomy. Renal cell cancer. Left nephrectomy. Follow-up. TECHNIQUE: CT of the chest abdomen and pelvis. 80 cc nonionic Isovue-370 administered. COMPARISON : February 06, 2022. October 31, 2021. FINDINGS: CT chest: 1 mm punctate nodule posterior left upper lobe of the lung image 32 series 3 unchanged and of doubtful significance. Both lungs are otherwise clear. The trachea and mainstem bronchi are patent and clear. No thoracic lymphadenopathy. Coronary artery calcification. Mitral annular calcification. Heterogeneous thyroid gland unchanged. CT of the abdomen and pelvis: Postsurgical change from right-sided hemicolectomy and ileocolonic anastomosis. No bowel obstruction or ileus. Normal-appearing liver without masses or biliary dilatation. Focal fat along the falciform ligament of no clinical significance. Cholelithiasis without cholecystitis. No splenomegaly. The pancreas, right adrenal gland, and right kidney are normal. Surgically absent left kidney and possibly the left adrenal gland as well as dense vascular calcification within a normal caliber abdominal aorta and iliac arteries. No bowel obstruction, ileus, ascites, or lymphadenopathy. The urinary bladder is unremarkable. The uterus is within normal limits. Small cyst left ovary unchanged. Suspensory device within the vagina. Nerve root sleeve cysts within the sacrum. Scattered degenerative and hypertrophic change of the thoracolumbar spine with multilevel degenerative disc disease. No lytic or blastic lesions identified. IMPRESSION: No evidence for recurrent or metastatic disease. Please note that all CT scans at this facility use dose modulation, iterative reconstruction, and/or weight-based dosing when appropriate to reduce radiation dose to as low as reasonably achievable. Dictated by Reece Montero MD @ 08/20/2022 7:14:53 PM (Electronically Signed)
== END 2022-08-20 09:59 | disposition home or self-care (01) ==
LOC: CT 10:01
PROVIDERS: PCP Family Medicine; Visit Provider Clinical Nurse Specialist
DX: C64.9 Malignant neoplasm of unspecified kidney, except renal pelvis (principal); C18.9 Malignant neoplasm of colon, unspecified
CPT/HCPCS: 36415; 71260; 74177; 80053; 82565; 85025; Q9967

== ENCOUNTER 2022-09-10 15:43 | Outpatient (CLI) | payer MEDICARE, BC, SELFPAY | END 2022-09-10 15:44 | disposition home or self-care (01) | PROVIDERS: PCP Family Medicine; Visit Provider Family Medicine | DX: Z00.00 Encounter for general adult medical examination without abnormal findings (principal); E78.5 Hyperlipidemia, unspecified; E55.9 Vitamin D deficiency, unspecified; N81.9 Female genital prolapse, unspecified; D50.9 Iron deficiency anemia, unspecified; M85.80 Other specified disorders of bone density and structure, unspecified site | CPT/HCPCS: 80061; 82306 ==

== ENCOUNTER 2023-01-22 10:02 | Outpatient (CLI) | payer MEDICARE, SELFPAY ==
--- NOTE | 2023-01-22 11:00 | CRLHL7_ITS ---
For Patients: As a result of the Century Cures Act, medical imaging exams and procedure reports are released immediately into your electronic medical record. You may view this report before your referring provider. If you have questions, please contact your health care provider. Indication: STAGE 2 CARCINOMA OF COLON Technique: Postcontrast CT chest, abdomen and pelvis. 78 cc Isovue 370 intravenous contrast. Please note that all CT scans at this facility use dose modulation, iterative reconstruction, and/or weight-based dosing when appropriate to reduce radiation dose to as low as reasonably achievable. Comparison: 08/20/2022 Findings: In the chest, there is no suspicious pulmonary nodule or mass. Mild scarring noted in both lower lobes. No pleural effusion or infiltrate. No edema or pneumothorax. No enlarged mediastinal, hilar or axillary lymph nodes. Degenerative changes. No fracture. Breast tissue normal. In the abdomen, there is a tiny cyst within the inferior liver as before. Focus of fatty deposition within the liver adjacent to the falciform ligament again noted. Calcified stones in the gallbladder are similar. No biliary obstruction. Spleen normal. Left nephrectomy. Right kidney normal. No adrenal lesion. Pancreas normal. Atherosclerotic disease. No aneurysm. No retroperitoneal or mesenteric adenopathy. Small hiatal hernia. No bowel obstruction. In the pelvis, postop changes of right hemicolectomy. Bladder normal. Pessary device. Mild diverticulosis. No diverticulitis. No bowel obstruction. No free air or free fluid. No abscess. No pelvic or inguinal adenopathy. Degenerative changes. No fracture. 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 Impression: No evidence of metastatic disease. Please note that all CT scans at this facility use dose modulation, iterative reconstruction, and/or weight-based dosing when appropriate to reduce radiation dose to as low as reasonably achievable. Dictated by Miles Clements MD @ 01/23/2023 10:27:23 AM (Electronically Signed)
== END 2023-01-22 10:03 | disposition home or self-care (01) ==
PROVIDERS: PCP Family Medicine; Visit Provider Nurse Practitioner Family
DX: C18.9 Malignant neoplasm of colon, unspecified (principal)
CPT/HCPCS: 71260; 74177; Q9967

== ENCOUNTER 2023-01-27 08:30 | Outpatient (RCR) | payer MEDICARE, BC, SELFPAY ==
[2022-08-20 14:24] LABS: Basophils Absolute Auto 0.05 K/uL (0.00-0.30); Basophils Percent Auto 0.7 % (0.0-3.0); Eosinophils Absolute Auto 0.11 K/uL (0.00-0.50); Eosinophils Percent Auto 1.5 % (0.0-7.0); Hematocrit 36.7 % (33.0-51.0); Hemoglobin* 12.2 gm/dL (12.0-16.0); Immature Granulocytes Abs Auto 0.01 K/uL (0.00-0.30); Immature Granulocytes Pct Auto 0.1 %; Lymphocytes Percent Auto 15.6 % (20-44); Mean Corpuscular HGB Conc 33 gm/dL (32-36); Mean Corpuscular Hemoglobin 29 pg (26-34); Mean Corpuscular Volume 87 fL (80-100); Monocytes Percent Auto 9.3 % (0.0-11.0); Neutrophils Percent Auto 72.8 % (42.0-72.0); Platelet Count* 321 K/uL (140-440); RDW Coefficient of Variation % 12.8 % (11.5-15.5); Red Blood Count 4.22 m/uL (4.00-5.20); White Blood Count* 7.55 K/uL (4.50-11.00)
[2022-08-20 14:29] LABS: Slide Review Reflex No
[2022-08-20 14:35] LABS: Chloride* 97 mmol/L (96-114)
[2022-08-20 14:36] LABS: Potassium* 4.4 mmol/L (3.6-5.1); Sodium* 130 mmol/L (135-149)
[2022-08-20 14:38] LABS: Alanine Aminotransferase* 20 U/L (4-35); Alkaline Phosphatase* 72 U/L (40-150); Aspartate Amino Transferase* 25 U/L (12-35); Bilirubin Total* 0.6 mg/dL (0.1-1.5); Blood Urea Nitrogen* 19 mg/dL (7-30); Carbon Dioxide* 28 mmol/L (20-32); Estimated Glomerular Filt Rate 55 ml/min; Glucose* 113 mg/dL (60-115); Total Protein* 7.4 g/dL (6.0-8.3)
[2022-08-20 14:39] LABS: Calcium* 8.7 mg/dL (8.4-10.6)
[2022-08-26 11:45] LABS: Carcinoembryonic Antigen 2.6
[2023-01-22 10:34] LABS: Basophils Absolute Auto 0.05 K/uL (0.00-0.30); Basophils Percent Auto 0.9 % (0.0-3.0); Eosinophils Absolute Auto 0.21 K/uL (0.00-0.50); Eosinophils Percent Auto 3.9 % (0.0-7.0); Hematocrit 34.8 % (33.0-51.0); Hemoglobin* 11.7 gm/dL (12.0-16.0); Immature Granulocytes Abs Auto 0.01 K/uL (0.00-0.30); Immature Granulocytes Pct Auto 0.2 %; Lymphocytes Absolute Auto 1.31 K/uL (0.90-2.90); Mean Corpuscular HGB Conc 34 gm/dL (32-36); Mean Corpuscular Hemoglobin 29 pg (26-34); Mean Corpuscular Volume 86 fL (80-100); Monocytes Percent Auto 9.4 % (0.0-11.0); Neutrophils Absolute Auto 3.36 K/uL (1.7-7.0); Neutrophils Percent Auto 61.6 % (42.0-72.0); Platelet Count* 255 K/uL (140-440); RDW Coefficient of Variation % 12.5 % (11.5-15.5); Red Blood Count 4.03 m/uL (4.00-5.20); White Blood Count* 5.45 K/uL (4.50-11.00)
[2023-01-22 10:37] LABS: Slide Review Reflex No
[2023-01-22 10:59] LABS: Albumin* 3.9 g/dL (3.3-5.0); Chloride* 101 mmol/L (96-114)
[2023-01-22 11:00] LABS: Potassium* 4.1 mmol/L (3.6-5.1); Sodium* 131 mmol/L (135-149)
[2023-01-22 11:02] LABS: Bilirubin Total* 0.5 mg/dL (0.1-1.5); Estimated Glomerular Filt Rate 55 ml/min
[2023-01-22 11:03] LABS: Alanine Aminotransferase* 17 U/L (4-35); Alkaline Phosphatase* 71 U/L (40-150); Aspartate Amino Transferase* 29 U/L (12-35); Blood Urea Nitrogen* 18 mg/dL (7-30); Calcium* 8.6 mg/dL (8.4-10.6); Carbon Dioxide* 23 mmol/L (20-32); Glucose* 97 mg/dL (60-115); Total Protein* 7.2 g/dL (6.0-8.3)
[2023-01-23 23:04] LABS: Carcinoembryonic Antigen 2.7 ng/mL
== END 2023-02-18 23:59 | disposition home or self-care (01) ==
LOC: CCIC 08:30
PROVIDERS: Nurse Practitioner Family; PCP Family Medicine; Referring Provider Family Medicine; Visit Provider Internal Medicine Hematology & Oncology
DX: C18.9 Malignant neoplasm of colon, unspecified (principal)
CPT/HCPCS: 36415; 80053; 82378; 85025; 99212; 99213; 99214

== ENCOUNTER 2023-06-25 09:15 | Outpatient (CLI) | payer MEDICARE, SELFPAY ==
--- NOTE | 2023-06-25 10:00 | CRLHL7_ITS ---
For Patients: As a result of the Century Cures Act, medical imaging exams and procedure reports are released immediately into your electronic medical record. You may view this report before your referring provider. If you have questions, please contact your health care provider. Indication: MALIGNANT NEOPLASM OF UNSPECIFIED KIDNEY Technique: CT Chest CAP W/ 77CC ISOVUE 370 AND WATER Please note that all CT scans at this facility use dose modulation, iterative reconstruction, and/or weight-based dosing when appropriate to reduce radiation dose to as low as reasonably achievable. Comparison: 01/22/2023, 08/20/2022 Findings: In the chest, the visualized thyroid gland is unremarkable. Stable subcentimeter mediastinal lymph nodes. No enlarged hilar or axillary lymph nodes. Breast tissue appears normal. Incidental benign calcification within the right breast. Atherosclerotic changes. Chronic mild atelectasis within the left lower lobe with associated mild mucus plugging. Dependent atelectasis also present bilaterally. No pleural effusion or infiltrate. No suspicious pulmonary nodule. In the abdomen, there is no suspicious intrahepatic mass. Focal fat deposition noted adjacent to the falciform ligament. Stones within the gallbladder are present, as before. No biliary obstruction. The spleen is within normal limits. Normal adrenal glands. Normal right kidney. Incidental subcentimeter cyst lower pole right kidney along with extrarenal pelvis. The right ureter is normal. Status post left nephrectomy. No adenopathy. Atherosclerotic changes. Pancreas normal. Postop changes partial colectomy. No bowel obstruction. No incisional hernia. In the pelvis, the bladder is normal. Pessary device is present. Sigmoid diverticulosis. No diverticulitis. No bowel obstruction. No free air or free fluid. 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 Degenerative changes. No suspicious osseous lesion. Degenerative disc disease and facet degeneration. Impression: No evidence of metastatic disease. No significant change since the prior exam. Please note that all CT scans at this facility use dose modulation, iterative reconstruction, and/or weight-based dosing when appropriate to reduce radiation dose to as low as reasonably achievable. Dictated by Miles Clements MD @ 06/25/2023 1:31:02 PM (Electronically Signed)
== END 2023-06-25 09:16 | disposition home or self-care (01) ==
LOC: CT 09:17
PROVIDERS: PCP Family Medicine; Visit Provider Internal Medicine Hematology & Oncology
DX: C64.9 Malignant neoplasm of unspecified kidney, except renal pelvis (principal); C18.9 Malignant neoplasm of colon, unspecified
CPT/HCPCS: 71260; 74177; Q9967

== ENCOUNTER 2023-06-30 10:00 | Outpatient (RCR) | payer MEDICARE, SELFPAY ==
[2023-06-25 09:43] LABS: Basophils Absolute Auto 0.04 K/uL (0.00-0.30); Basophils Percent Auto 0.6 % (0.0-3.0); Eosinophils Absolute Auto 0.21 K/uL (0.00-0.50); Eosinophils Percent Auto 3.2 % (0.0-7.0); Hematocrit 37.4 % (33.0-51.0); Hemoglobin* 12.4 gm/dL (12.0-16.0); Immature Granulocytes Abs Auto 0.01 K/uL (0.00-0.30); Immature Granulocytes Pct Auto 0.2 %; Lymphocytes Absolute Auto 1.41 K/uL (0.90-2.90); Lymphocytes Percent Auto 21.8 % (20-44); Mean Corpuscular HGB Conc 33 gm/dL (32-36); Mean Corpuscular Hemoglobin 29 pg (26-34); Mean Corpuscular Volume 88 fL (80-100); Neutrophils Absolute Auto 4.23 K/uL (1.7-7.0); Neutrophils Percent Auto 65.2 % (42.0-72.0); Platelet Count* 278 K/uL (140-440); RDW Coefficient of Variation % 12.4 % (11.5-15.5); Red Blood Count 4.23 m/uL (4.00-5.20); White Blood Count* 6.48 K/uL (4.50-11.00)
[2023-06-25 09:44] LABS: Slide Review Reflex No
[2023-06-25 10:03] LABS: Albumin* 4.2 g/dL (3.3-5.0); Chloride* 101 mmol/L (96-114); Potassium* 4.2 mmol/L (3.6-5.1); Sodium* 135 mmol/L (135-149)
[2023-06-25 10:05] LABS: Estimated Glomerular Filt Rate 55 ml/min
[2023-06-25 10:06] LABS: Alanine Aminotransferase* 20 U/L (4-35); Alkaline Phosphatase* 75 U/L (40-150); Anion Gap 7 mEq/L (7-15); Aspartate Amino Transferase* 29 U/L (12-35); Bilirubin Total* 0.5 mg/dL (0.1-1.5); Blood Urea Nitrogen* 18 mg/dL (7-30); Calcium* 9.1 mg/dL (8.4-10.6); Carbon Dioxide* 27 mmol/L (20-32); Glucose* 90 mg/dL (60-115); Total Protein* 7.6 g/dL (6.0-8.3)
[2023-06-26 15:59] LABS: Carcinoembryonic Antigen 2.6 ng/mL
== END 2023-12-22 23:59 | disposition home or self-care (01) ==
LOC: CCIC 10:00
PROVIDERS: PCP Family Medicine; Referring Provider Family Medicine; Visit Provider Internal Medicine Hematology & Oncology
DX: C18.9 Malignant neoplasm of colon, unspecified (principal); C64.2 Malignant neoplasm of left kidney, except renal pelvis
CPT/HCPCS: 36415; 80053; 82378; 85025; 99214; G0463

== ENCOUNTER 2024-04-21 14:00 | Outpatient (RCR) | payer MEDICARE, SELFPAY ==
--- NOTE | 2024-02-09 15:23 | PT.OPEX ---
[facility] Outpatient Eval PT [facility] Outpatient Eval Start: 02/09/24 07:13 Freq: Status: Active Protocol: Document 02/09/24 07:13 MLS (Rec: 02/09/24 15:22 MLS [id number]) E-signed By Ann Marie Snyder DPT Physical Therapy Outpatient Evaluation Insurance Information Recert Due Date 05/08/24 Insurance Name Medicare B,Blue [employer]/Blue Shield Medical Diagnosis R29.898 other symptoms and signs involving the musculoskeletal system Muscular deconditioning Treating Diagnosis LE strengthening Balance program Referring MD Dr. Galloway Subjective Subjective Patient is a 88 year old female who presents to physical therapy with signs and symptoms consistent with muscular deconditioning. She states that she had cancer about 3 years ago. She did break her left wrist and has noticed decreased strength in her left hand. She lives at the [facility]. She was doing some classes from the senior center at her apartment previously. She used to take classes at [address] [place] [address], but now exercises on her own at her building. The exercise room is right next to her apartment. She did fall twice from trips, once on a rug and once wearing clogs. There is someone who comes to her building twice a week and teaches classes that work on balance. She is using the nu- step for 2 miles a couple times times a week. She is doing 2 pound weights on her upper extremities, with some difficulty on the left. She does not do any strengthening in her lower extremities at this time. She is trying to lose weight. She went from 165 to 150 pounds and has loose skin that she is concerned could be throwing off her balance. In the last few months, she lost 5 pounds. She is also going for walks, but would like to find a track she could walk at indoor . Significant past medical history includes kidney removal (approximately 3 years ago) and previous colon cancer about 3 years ago. 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 - [employer] Objective Other/Pertinent Objective GAIT/FUNCTIONAL MOBILITY Independent, antalgic gait Romberg eyes open:30 sec with perturbation Romberg eyes closes: 30 sec 30 second sts: 8 5 time sts: 17 sec Age Bracket Time (sec) 60-69 yo 11.4 / 70-79 yo 12.6 / 80- 89 yo 14.8 Tandem stance: unable to perform B without loss of balance Single legs stance: Less than 5 seconds B with loss of balance LLE MMT: Hip flexion: R 4/5 L 4/5 Hip abduction: R 4/5 L 4/5 Hip extension: R 4/5 L 4/5 Knee flexion: R 4+/5 L 4+/5 Knee extension: R 4+/5 L 4+/5 Functional Test Performed & Score LAGUERRE BALANCE TEST: 44/56 Assessment Assessment/Impression Pt is a 88 year old female who presents with concerns of muscular deconditioning. Patient also has notable objective findings including decreased strength which are also likely contributing to the problem. Patient is a good candidate for skilled therapy to target deficits described above. Skilled PT intervention is necessary for use of therapeutic exercise manual therapy, neuromuscular re- education, gait training, and therapeutic activity. Functional impairments include difficulty with: walking, standing, exercising, and ADLs . See appropriate sections of PT eval for complete list of goals and POC. D/C plan and criteria is for pt to achieve the goals as listed below or until max rehab potential is met. Pt was agreeable with plan of care and goals established. Primary Functional Limitations standing walking exercising ADLs Plan of Care Rehabilitation Potential Good Physical Therapy Goals Within 10-12 weeks: 1.Pt will demonstrate independence in performance of home exercise program with the use of video and/or handouts in order to optimize functional mobility and reduce risk for re-injury. 2.Pt will demonstrate consistent HEP compliance to ensure progress in reaching established goals during course of care. 3.Patient will be able to grocery shop for 30 minutes without falls. 4.Patient will report minimal difficulty performing all activities in order to improve functional mobility at home, work and during functional leisure activities. 5.Patient will be able to walk 4 blocks without difficulty. 6.Patient will be able to bend and lift household items from the floor to shoulder height to perform ADLs without reports of falls. 7.Pt will be able to ascend/ descend 1 flight of stairs in order to perform ADLs with minimal difficulty. 8.Pt will exhibit 5 pt improvement in Laguerre Balance Test to demonstrate functional improvement and progress towards goals Coordination/Communication With Referral Source Treatment Plan/Direct Interventions Neuromuscular Re-ed, Therapeutic Activities, Therapeutic Exercises Patient Will Be Discharged From Therapy Independently Progressing Evaluation Billing Untimed Code Treatment Minutes 40 Complexity Low Certification Information Initial Certification Date 02/09/24 Ending Certification Date 05/08/24 Provider Signature Required Yes Provider Signature Shows Agreement With POC & Medical Necessity Physician NPI Number Write NPI# Here Physician Comment/Change : Physician Signature & Date Requested Please Sign/Date Here
== END 2024-06-08 13:03 | disposition home or self-care (01) ==
PROVIDERS: PCP Family Medicine; Visit Provider Internal Medicine Hematology & Oncology
DX: R29.898 Other symptoms and signs involving the musculoskeletal system (principal); M62.9 Disorder of muscle, unspecified; Z51.89 Encounter for other specified aftercare
CPT/HCPCS: 97110; 97161

== ENCOUNTER 2024-06-29 13:25 | Outpatient (CLI) | payer MEDICARE, SELFPAY ==
--- NOTE | 2024-06-29 14:00 | CRLHL7_ITS ---
For Patients: As a result of the Century Cures Act, medical imaging exams and procedure reports are released immediately into your electronic medical record. You may view this report before your referring provider. If you have questions, please contact your health care provider. INDICATIONS: Malignant neoplasm left kidney. TECHNIQUE: CT chest, abdomen and pelvis acquired with 84 cc of Isovue 370 IV contrast. COMPARISON: CT chest, abdomen and pelvis with contrast 06/25/2023. FINDINGS: Chest: No pleural or pericardial effusions. No pathologic lymphadenopathy. Aortic atherosclerosis. Thoracic aorta and main pulmonary arteries are normal in caliber. Coronary artery calcifications. Heart size is within normal limits. Soft tissues of the thoracic wall are unremarkable/unchanged. No pneumothorax. Stable mild left lower lobe bronchial wall thickening. Central airways are otherwise patent. Mild bibasilar atelectasis. No suspicious nodules or acute airspace disease. Abdomen: Stable left nephrectomy bed. Right kidney is unremarkable. No hydronephrosis. Liver, spleen, pancreas and adrenal glands are unremarkable. Cholelithiasis, as before. Gallbladder is otherwise unremarkable. No biliary ductal dilatation. Stable partial colectomy and small bowel anastomosis. Distal colonic diverticulosis without evidence of acute diverticulitis. No bowel obstruction or acute inflammatory change of the GI tract. No pathologic lymphadenopathy or free fluid. Atherosclerotic disease. No abdominal aortic aneurysm. Pelvis: Indwelling pessary, as before. Uterus, adnexal regions and bladder as imaged are unremarkable. Sigmoid diverticulosis without evidence of acute diverticulitis. No pathologic lymphadenopathy or free fluid. Bone windows: Degenerative changes spine and pelvis. No acute or suspicious abnormality. IMPRESSION: No evidence of metastatic disease in the chest, abdomen or pelvis. Dictated by Jayson Cruz MD @ 06/30/2024 10:38:26 AM Please note that all CT scans at this facility use dose modulation, iterative reconstruction, and/or weight-based dosing when appropriate to reduce radiation dose to as low as reasonably achievable. Dictated by: Jayson Cruz MD @ 06/30/2024 10:38:47 (Electronically Signed)
== END 2024-06-29 13:26 | disposition home or self-care (01) ==
LOC: CT 13:27
PROVIDERS: PCP Family Medicine; Visit Provider Internal Medicine Hematology & Oncology
DX: C64.2 Malignant neoplasm of left kidney, except renal pelvis (principal); C18.9 Malignant neoplasm of colon, unspecified
CPT/HCPCS: 71260; 74177; Q9967

== ENCOUNTER 2024-07-05 11:10 | Outpatient (RCR) | payer MEDICARE, SELFPAY ==
[2024-01-14 12:18] LABS: Basophils Absolute Auto 0.04 K/uL (0.00-0.30); Basophils Percent Auto 0.6 % (0.0-3.0); Eosinophils Absolute Auto 0.21 K/uL (0.00-0.50); Hemoglobin* 12.2 gm/dL (12.0-16.0); Immature Granulocytes Abs Auto 0.06 K/uL (0.00-0.30); Immature Granulocytes Pct Auto 0.9 %; Lymphocytes Absolute Auto 1.79 K/uL (0.90-2.90); Lymphocytes Percent Auto 25.6 % (20-44); Mean Corpuscular HGB Conc 34 gm/dL (32-36); Mean Corpuscular Hemoglobin 30 pg (26-34); Mean Corpuscular Volume 87 fL (80-100); Monocytes Percent Auto 9.1 % (0.0-11.0); Neutrophils Absolute Auto 4.26 K/uL (1.7-7.0); Neutrophils Percent Auto 60.8 % (42.0-72.0); Platelet Count* 267 K/uL (140-440); RDW Coefficient of Variation % 12.6 % (11.5-15.5); Red Blood Count 4.12 m/uL (4.00-5.20)
[2024-01-14 12:37] LABS: Slide Review Reflex No
[2024-01-14 12:41] LABS: Albumin* 4.3 g/dL (3.3-5.0); Chloride* 99 mmol/L (96-114)
[2024-01-14 12:42] LABS: Potassium* 4.3 mmol/L (3.6-5.1); Sodium* 133 mmol/L (135-149)
[2024-01-14 12:44] LABS: Alanine Aminotransferase* 16 U/L (4-35); Alkaline Phosphatase* 62 U/L (40-150); Anion Gap 6 mEq/L (7-15); Aspartate Amino Transferase* 27 U/L (12-35); Bilirubin Total* 0.5 mg/dL (0.1-1.5); Blood Urea Nitrogen* 14 mg/dL (7-30); Carbon Dioxide* 28 mmol/L (20-32); Estimated Glomerular Filt Rate 55 ml/min; Glucose* 95 mg/dL (60-115); Total Protein* 7.5 g/dL (6.0-8.3)
[2024-01-14 12:45] LABS: Calcium* 9.2 mg/dL (8.4-10.6)
[2024-01-16 10:27] LABS: Carcinoembryonic Antigen 2.6 ng/mL
[2024-06-29 13:53] LABS: Basophils Absolute Auto 0.07 K/uL (0.00-0.30); Basophils Percent Auto 0.9 % (0.0-3.0); Eosinophils Absolute Auto 0.26 K/uL (0.00-0.50); Eosinophils Percent Auto 3.2 % (0.0-7.0); Hematocrit 38.8 % (33.0-51.0); Hemoglobin* 12.5 gm/dL (12.0-16.0); Immature Granulocytes Abs Auto 0.01 K/uL (0.00-0.30); Immature Granulocytes Pct Auto 0.1 %; Lymphocytes Absolute Auto 1.76 K/uL (0.90-2.90); Lymphocytes Percent Auto 21.5 % (20-44); Mean Corpuscular HGB Conc 32 gm/dL (32-36); Mean Corpuscular Hemoglobin 28 pg (26-34); Mean Corpuscular Volume 88 fL (80-100); Monocytes Percent Auto 7.5 % (0.0-11.0); Neutrophils Absolute Auto 5.47 K/uL (1.7-7.0); Neutrophils Percent Auto 66.8 % (42.0-72.0); Platelet Count* 251 K/uL (140-440); RDW Coefficient of Variation % 12.6 % (11.5-15.5); Red Blood Count 4.43 m/uL (4.00-5.20); White Blood Count* 8.18 K/uL (4.50-11.00)
[2024-06-29 13:59] LABS: Slide Review Reflex No
[2024-06-29 14:06] LABS: Albumin* 4.1 g/dL (3.3-5.0); Chloride* 99 mmol/L (96-114)
[2024-06-29 14:07] LABS: Potassium* 4.2 mmol/L (3.6-5.1); Sodium* 133 mmol/L (135-149)
[2024-06-29 14:09] LABS: Alanine Aminotransferase* 18 U/L (4-35); Alkaline Phosphatase* 70 U/L (40-150); Anion Gap 8 mEq/L (7-15); Aspartate Amino Transferase* 28 U/L (12-35); Bilirubin Total* 0.6 mg/dL (0.1-1.5); Blood Urea Nitrogen* 15 mg/dL (7-30); Carbon Dioxide* 26 mmol/L (20-32); Creatinine* 0.8 mg/dL (0.5-1.5); Estimated Glomerular Filt Rate 71 ml/min; Glucose* 98 mg/dL (60-115); Total Protein* 7.4 g/dL (6.0-8.3)
[2024-06-29 14:10] LABS: Calcium* 9.1 mg/dL (8.4-10.6)
[2024-07-01 05:32] LABS: Carcinoembryonic Antigen 2.9 ng/mL
--- NOTE | 2024-07-05 09:30 | ONC.NURNOTE ---
Pt called to reschedule Lin appt today d/t extreme cold. She fell on the ice in the last year and broke her wrist and is cautious with going out in icy weather. Appt rescheduled for 07/15 1330.
== END 2024-07-12 23:59 | disposition home or self-care (01) ==
LOC: CCIC 11:10
PROVIDERS: PCP Family Medicine; Referring Provider Family Medicine; Visit Provider Internal Medicine Hematology & Oncology
DX: C18.9 Malignant neoplasm of colon, unspecified (principal); C64.2 Malignant neoplasm of left kidney, except renal pelvis
CPT/HCPCS: 36415; 80053; 82378; 85025; 99214; G0463

== ENCOUNTER 2024-08-31 17:54 | Emergency (ER) | payer MEDICARE, SELFPAY ==
[2024-08-31] VITALS (21 sets, daily range): BP systolic 100–166; BP diastolic 67–109; PULSE 78–104; RESP 4–27; TEMP 36.5; O2SAT 93–100; BMI 26.5
--- OUTSIDE RECORDS SUMMARY | 2024-08-31 17:56 | XMS_ITS | CCD ---
Author Name Interface, [id number] Address [address] [facility] [address] [id number] [facility] Oncology Address [address] [facility] [address] [place] [address] Care Team Providers Care Genetics Nurse Name Role Phone Bart Hutchins Unavailable Unavailable Reason for Visit Social History Date Name Value 02/04/2022 Sex Female
--- OUTSIDE RECORDS SUMMARY | 2024-08-31 17:56 | XMS_ITS | Clinical Summary ---
Author Organization [facility] Address [address] [place] [id number] Care Team Providers Care Lead Handler Name Role Phone Skinny Jean Baptiste RN Unavailable [phone] Deepa Kunz MD Unavailable Unavailab Keyla Fishman MD Primary Care Provider + Allergies No known active allergies Medications acetaminophen (TYLENOL) 160 mg/5 mL suspensionIndica tions:Malignant neoplasm of hepatic flexure (HC) Take 31.3 mL (1000 mg) by mouth every 6 hours if needed. 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 Immunizations Immunization Administration Dates Next Due AMB Influenza, IIV3 (Age >=3 years)(Flu Clinic Only) 03/27/2009 Influenza, IIV3 (Age >=3 years) 05/24/2006,04/21,04/19/2003 Family History Medical History Relation Name Comments Heart Disease Father rhumatic fever as child Arthritis Mother Relation Name Status Comments Father Mother Social History Tobacco Use Types Packs/Day Years Used Date Smoking Tobacco: Never Smokeless Tobacco: Never Tobacco Cessation:Counseling Given: No Alcohol Use Standard Drinks/Week Comments Yes 1.7 (1 standard drink = 0.6 oz p ure alcohol) rarely Social Connections Answer Date Recorded Frequency of Communication with Friends and Fami ly Not on file 06/23/2021 Financial Resource Strain Answer Date R ecorded Difficulty of Paying Living Expenses Not on file 06/23/2021 Difficulty of Paying Living Expenses Not on file 06/23/2021 Comments No Sex and Gender Information Value Date Recorded Sex Assigned at Not on file Legal Sex Female 6:31 AM [employer] Gender Identity Not on file Sexual Orientation Not on file Obstetrics History Para Term AB IAB SAB Ectopic Multiple Livin g Live Births 2 Date Outcome GA Total Labor Labor/2nd/3rd Weight Sex Type Anes PTL Ana Laura A1 A5 Name Clin Last Filed Vital Signs Vital Sign Reading Time Taken Comments Blood Pressure 176/72 03/09/2021 10:44 AM CDT Pulse 80 03/09/2021 10:44 AM CDT Temperature 36.9 C (98.4 F) 03/09/2021 10:44 AM CDT Respiratory Rate 18 [...] 10/16/1946 Depression screening for age 12+ 1948 Pneumococcal series for age 50+ (1 of 1 - PCV) 1986 Zoster (shingles) series for age 50+ (1 of 2) 1986 Medicare Wellness for age 65+ 2001 RSV vaccine for adults or (1 - 1-dose 75+ series) 10/16/2011 Tetanus booster 01/14/2021 01/14/2011 (Declined) BMI (ht and wt on same day) for age 18+ 03/09/2022 03/09/2021 COVID-19 vaccine series ( season) 2024 08/02/2021, 08/29/2020, 08/08/2020 Influenza Vaccine (#1) 02/22/2024200 9, 05/24/2006, 04/21/2004, Additional history exists DEXA/DXA scan for age 65+ Completed 07/07/2009 Procedures Procedure Name Priority Date/Time Associated Diagnosis Comments XR DXA BONE DENSITY 2 SITES AXIAL Routine 07/07/2009 9:01 AM [employer] Screening for Osteoporosis from Last 3 Months or Most Recently Relevant to Health Maintenance Results * XR DEXA BONE DENSITY 2 SITES (07/07/2009 9:01 AM [employer]) Anatomical Region Laterality Modality Spine, HIPS, HIPL, HIPR Other 07/07/2009 9:01 AM [employer] Narrative 07/11/2009 1:29 PM [employer] Please see scanned document for results of this study. Procedure Note Anna Stewart - 07/11/2009 Please see scanned document for results of this study. Anna Stewart CARPET OR RUG LAYER HELPER DEXA Final Result from Last 3 Months or Most Recently Relevant to Health Maintenance Insurance MEDICARE PART B HB ONLY MEDICARE PART A HB ONLY [employer] [place] BLUE HB ONLY BL[employer] [place] [place] BLUE MR PB ONLY MEDICARE PART B HB ONLY [employer] [place] BLUE HB ONLY Advance Directives * Full Code (Latest Code Status on File) Date Activated Date Inactivated Comments 02/22/2021 11:44 AM 03/01/2021 2:32 PM Question Answer Comments Code Status Discussion: Not Discussed Care Teams Lead Handler Relationship Specialty Start Date End Date Keyla Golden MD [address] [place] [address] PCP - General Family Practice 01/18/21 Skinny Jean Baptiste, RN [address] [place] [id number] Nurse Navigator Registered Nurse 01/18/21 Deepa Kunz MD [address] [place] [id number] Surgery - General 01/18/21
--- OUTSIDE RECORDS SUMMARY | 2024-08-31 17:56 | XMS_ITS | Data Portability ---
Author Organization [place] [facility], [facility] Address [address] [place] [address] Assessment Encounter Date Assessment Date Assessment LastModified by Organization Details LastModified Time 07/11/2021 07/11/2021 85yo female with urinary incontinence, hx of renal mass s/p left nephrectomy [email or web address] Not available 07/10/2021 14:13:44 Plan of Treatment Reminders Order Date Submit Date Provider Last Modified By Organization Details Last Modified Time Details Appointments None recorded. Lab urinalysis , dipstick 2021 022 [email or web address] Not available 13:12:00 urinalysis , dipstick 2021 022 [email or web address] Not available 15:31:22 urinalysis , dipstick 2021 022 Not available 12:39:05 Referral None recorded. Procedures None recorded. Surgeries None recorded. Imaging None recorded. Medication Orders Estrace 0.01% (0.1 mg/gram) vaginal cream 2021 022 [id number], [address], [address], 12:01:55 Patient TargetsNo targets recorded. Patient InstructionsNo instructions recorded. Reason for Referral None Reported. Results Created Date Observation Date Name Description Value Unit Range Abnormal Flag Note LastModifiedBy Organization Detail LastModifiedTime 07/31/1907/31/2021 urina lysis , dipst ick Color-Status Yellow Not Available [facility] [address], [place], [address], 07/31/2021 12:38:13 07/31/19 22 07/31/2021 urina lysis , dipst ick Clarity-Stat us Clear Not Available [facility] [address], [place], [address], 07/31/2021 12:38:13 07/31/19 22 07/31/2021 urina lysis , dipst ick Glucose-Stat us Negati ve Not Available [facility] [address], [place], [address], 07/31/2021 12:38:13 07/31/19 22 07/31/2021 urina lysis , dipst ick Bilirubin-St atus Negati ve Not Available [facility] [address], [place], [address], 07/31/2021 12:38:13 07/31/19 22 07/31/2021 urina lysis , dipst ick Ketones-Stat us Negati ve Not Available [facility] [address], [place], [address], 07/31/2021 12:38:13 07/31/19 22 07/31/2021 urina lysis , dipst ick Sp [place]-Stat us 1.015 Not Available [facility] [address], [place], [address], 07/31/2021 12:38:13 07/31/19 22 07/31/2021 urina lysis , dipst ick pH-Status 7.5 Not Available [facility] [address], [place], [address], 07/31/2021 12:38:13 07/31/19 22 07/31/2021 urina lysis , dipst ick Urobilinogen -Status 0.2 Not Available [facility] [address], [place], [address], 07/31/2021 12:38:13 07/31/19 22 07/31/2021 urina lysis , dipst ick Nitrates-Sta tus negati ve Not Available [facility] [address], [place], [address], 07/31/2021 12:38:13 07/31/19 22 07/31/2021 urina lysis , dipst ick Blood-Status Trace Not Available [facility] [address], [place], [address], 07/31/2021 12:38:13 07/31/19 22 07/31/2021 urina lysis , dipst ick Leuko-Status Negati ve Not Available [facility] [address], [place], [address], 07/31/2021 12:38:13 07/31/19 22 07/31/2021 urina lysis , dipst ick Specimen Type Voided Not Available [facility] [address], [place], [address], 07/31/2021 12:38:13 07/31/19 22 07/31/2021 urina lysis , dipst ick Performed by nichelle buckner RN Not Available [facility] [address], [place], [address], 07/31/2021 12:38:13 07/31/19 22 07/31/2021 urina lysis , dipst ick Total Urine Volume 30cc Not Available [facility] [address], [place], [address], 07/31/2021 12:38:13 09/27/19 22 09/26/2021 urina lysis , dipst ick pH-Status 7.0 Not Available [facility] [address], [place], [address], 09/26/2021 15:26:40 09/27/19 22 09/26/2021 urina lysis , dipst ick Blood-Status Trace Not Available [facility] [address], [place], [address], 09/26/2021 15:26:40 09/27/19 22 09/26/2021 urina lysis , dipst ick Leuko-Status Small Not Available [facility] [address], [place], [address], 09/26/2021 15:26:40 12/13/19 22 12/12/2021 urina lysis , dipst ick Color-Status Straw Not Available [facility] [address], [place], [address], 12/12/2021 13:10:47 12/13/19 22 12/12/2021 urina lysis , dipst ick Clarity-Stat us Slight ly Cloudy Not Available [facility] [address], [place], [address], 12/12/2021 13:10:47 12/13/19 22 12/12/2021 urina lysis , dipst ick Glucose-Stat us Negati ve Not Available [facility] [address], [place], [address], 12/12/2021 13:10:47 12/13/19 22 12/12/2021 urina lysis , dipst ick Bilirubin-St atus Negati ve Not Available [facility] [address], [place], [address], 12/12/2021 13:10:47 12/13/19 22 12/12/2021 urina lysis , dipst ick Ketones-Stat us Negati ve Not Available [facility] [address], [place], [address], 12/12/2021 13:10:47 12/13/19 22 12/12/2021 urina lysis , dipst ick Sp [place]-Stat us 1.020 Not Available [facility] [address], [place], [address], 12/12/2021 13:10:47 12/13/19 22 12/12/2021 urina lysis , dipst ick pH-Status 6.0 Not Available [facility] [address], [place], [address], 12/12/2021 13:10:47 12/13/19 22 12/12/2021 urina lysis , dipst ick Protein-Stat us 5.0 Not Available [facility] [address], [place], [address], 12/12/2021 13:10:47 12/13/19 22 12/12/2021 urina lysis , dipst ick Urobilinogen -Status 0.2 Not Available [facility] [address], [place], [address], 12/12/2021 13:10:47 12/13/19 22 12/12/2021 urina lysis , dipst ick Nitrates-Sta tus negati ve Not Available [facility] [address], [place], [address], 12/12/2021 13:10:47 12/13/19 22 12/12/2021 urina lysis , dipst ick Blood-Status Small Not Available [facility] [address], [place], [address], 12/12/2021 13:10:47 12/13/19 22 12/12/2021 urina lysis , dipst ick Leuko-Status Large Not Available [facility] [address], [place], [address], 12/12/2021 13:10:47 12/13/19 22 12/12/2021 urina lysis , dipst ick Specimen Type Voided Not Available [facility] [address], [place], [address], 12/12/2021 13:10:47 08/01/19 22 07/31/2021 bladd er scan (PROC ) No observ ation record ed. [email or web address] Not Available 09/26 17:41:45 09/28/19 22 09/26/2021 bladd er scan (PROC ) No observ ation record ed. BARCODE Not Available 2021 08:56:51 09/28/19 22 09/26/2021 bladd er scan (PROC ) No observ ation record ed. BARCODE Not Available 2021 17:56:24 01/08/20 22 10/31/2021 CT, chest + abdom en + pelvi s, w/ contr ast No observ ation record ed. elissa [facility] [address], [place], [address], 01/07/2022 17:34:22 Result Notes None recorded. Problems Name Problem SNOMED Code Status Onset Date Resolution Date Notes Provider Name and Address Organization Details Recorded Time Malignant tumor of kidney 998116432 Completed 202007/31/2021 4.7cm renal mass with renal vein involvem ent. Nichelle pastrana [facility] 2 12:37:30 Female stress incontine nce 69968183 Active 2021 Nichelle pastrana [facility] 2 12:37:38 Prolapse of female genital organs 99929854 Active 2021 STEPHANIE Canada [facility] 2 12:38:04 Malignant tumor of kidney 910818835 Active 2021 3.6cm with postive vein margin. 2020. Warren Squires MD [address], [place], [address], [facility] 12:23:42 Problem Notes None recorded. Procedures Surgical History Date Name Laterality Status Provider Name and Address Organization Details Recorded Time 12/13/19 22 Pessary Cleaning completed Nichelle Buckner [facility] 12/12/2021 13:23:38 09/27/19 22 Pessary Cleaning completed HANNAH Campuzano [address] [place] [address],[address], [place], [address], [facility] 09/26/2021 17:46:07 09/27/19 22 Bladder Scan completed HANNAH Campuzano [address] [place] [address],[address], [place], [address], [facility] 09/26/2021 17:45:23 07/31/19 22 Pessary Cleaning completed Augusta Bermudez MD [address] [place] [address],[address], [place], [address], [facility] 07/31/2021 13:18:07 07/31/19 22 CystoscopyFemale completed Augusta Bermudez MD [address] [place] [address],[address], [place], [address], [facility] 07/31/2021 13:18:09 07/31/19 22 Bladder Scan [facility] 07/31/2021 12:49:18 07/11/19 22 Pessary Cleaning completed GET FERRARI [address] [place] [address],[address], [place], [address], [facility] 07/10/2021 14:15:11 07/11/19 22 Bladder Scan completed Catherine Lobo [facility] 07/11/2021 14:33:39 06/06/20 21 Pessary Cleaning completed GET FERRARI [address] [place] [address],[address], [place], [address], [facility] 06/06/2021 16:14:16 06/06/20 21 Bladder Scan completed Catherine Lobo [facility] 06/06/2021 15:28:03 11/22/19 21 Colonoscopy completed Warren Squires MD [address], [place], [address], [facility] 01/07/2022 12:02:32 Imaging Results Imaging Date Name Status LastModified by Organiz ation Details LastModified Time 07/31/2021 bladder scan (PROC) completed [email or web address] Information not available 09/26/2021 17:41:45 09/26/2021 bladder scan (PROC) completed BARCODE Information not available 09/27/2021 08:56:51 09/26/2021 bladder scan (PROC) completed BARCODE Information not available 09/27/2021 17:56:24 10/31/2021 CT, chest + abdomen + pelvis, w/ contrast completed elissa [facility] [address] , [place], [address], 01/07/2022 17:34:22 Procedure Notes None recorded. Medical Equipment None Reported. Allergies No known drug allergies Medications Name Sig Start Date Stop Date Status Note LastModified by Organization Details LastModified Time azithromyci n 250 mg tablet TAKE 2 TABLETS BY MOUTH ON DAY 1, THEN 1 TABLET DAILY ON DAYS 2-5. 09/26 completed Not Available Not Available Not Available prednisone 20 mg tablet TAKE ONE TABLET BY MOUTH ONE TIME DAILY 01/07 completed Not Available Not Available Not Available metronidazo le 500 mg tablet Take as indicated on bowel prep instructi ons 03/15 completed Not Available Not Available Not Available ondansetron 8 mg disintegrat ing tablet DISSOLVE ONE TABLET IN MOUTH THREE TIMES DAILY NEEDED 01/18 completed Not Available Not Available Not Available cefuroxime axetil 500 mg tablet TAKE ONE TABLET BY MOUTH TWICE DAILY 01/07 completed Not Available Not Available Not Available neomycin 500 mg tablet Take as indicated on bowel prep instructi ons. 03/15 completed Not Available Not Available Not Available ondansetron 4 mg disintegrat ing tablet Take as indicated on bowel prep instructi ons. 03/15 completed Not Available Not Available Not Available fluticasone propionate 50 mcg/actuati on nasal spray,suspe nsion INHALE 2 SPRAYS INTO EACH NOSTRIL ONCE DAILY. active Not Available Not Available No t Available oxycodone 5 mg tablet 03/15 completed Not Available Not Available Not Available Estrace 0.01% (0.1 mg/gram) vaginal cream place 1 gram (pea size) amount intravagi berlin twice per week 01/07 completed Not Available Not Available Not Available Vitamin D3 active 2000 unit Not Available Not Available Not Available multivitami n active Not Available Not Available Not Available Vitals Date Recorded Body height Body mass index (BMI) Body weight Provider Name and Address Organization Details Last Updated DateTime 01/07/2022 165.1 cm 25.8 kg/m2 89935.82 g Warren Squires MD [address] [place] [address],[address], [place], [address], [facility] 01/07/2022 12:01:01 Date Recorded Body height Body mass index (BMI) Body weight Provider Name and Address Organization Details Last Updated DateTime 07/11/2021 165.1 cm 26.6 kg/m2 58846.78 g Catherine Lobo [facility] 07/11/2021 14:32:53 Date Recorded Body height Body mass index (BMI) Body weight Provider Name and Address Organization Details Last Updated DateTime 07/31/2021 165.1 cm 26.6 kg/m2 44036.78 g Nichelle Buckner [facility] 07/31/2021 12:35:15 Date Recorded Body height Body mass index (BMI) Body weight Provider Name and Address Organization Details Last Updated DateTime 09/26/2021 165.1 cm 26.6 kg/m2 63366.78 g Janay Eisenberg [facility] 09/26/2021 15:25:45 Date Recorded Body height Body mass index (BMI) Body weight Provider Name and Address Organization Details Last Updated DateTime 12/12/2021 165.1 cm 26.6 kg/m2 20632.78 g Nichelle Buckner [facility] 12/12/2021 13:21:18 Social History Question Answer Notes LastModified by Organizat ion Details LastModified Time Tobacco Smoking Status Never Smoker Warren Squires MD [address], [place], [address], [facility] 01/18/2021 12:28:01 What Is Your Level Of Alcohol Consumption? Occasional Information not available 09/26/2021 What Is Your Level Of Caffeine Consumption? Occasional Information not available 09/26/2021 What Was The Date Of Your Most Recent Tobacco Screening? 01/07/2022 [email or web address] Information not available 01/07/2022 Sex: Unknown Functional Status None recorded. Mental Status None recorded. Family History Relationship Description Onset Age of this Age Resolved Age Notes LastModified by Organization Details LastModified Time Father No current problems or disability [email or web address] Not available 01/18 12:27:36 Mother No current problems or disability [email or web address] Not available 01/18 12:27:36 Medical History Condition Response Sexually Transmitted Infection N Diabetes N Other Y Bleeding Disorder N High Blood Pressure N Kidney Stones N High Cholesterol N GERD/Acid Reflux N Heart Disease N Cancer Y Lung Disease N Depression N Gynecological History Statement/Question Response Irregular periods N Leaking urine with intercourse N Hormone Therapy N Heavy periods N Pain with intercourse N Sexually Active? N Obstetrics History GPAL:G 0 P 0 0 0 0 Past Encounters Encounter ID Performer Location Encounter Start Date Encounter Closed Date Diagnosis/Indication Diagnosis SNOMED-CT Code Diagnosis ICD10 Code Diagnosis Note [id number] MD SADI [facility] [address] [place] [address] 01/18/2021 12:09:35 01/22/2021 14:06:23 Renal mass 020730917 N28.89 4.7cm renal mass with renal vein involvemen t. This is still manageable with a laparoscop ic nephrectom y. This will be a combined case with Onc Surg at [facility], Dr Kunz. We'll need to get her CT images uploaded from [facility].S padma the tumor thrombus is smaller and on the left side, we should be able to reomve it without the help of Vascular Surgery. Final decision pending CT review at [facility]. [id number] MD SADI [facility] [address] [place] [address] 03/15/2021 11:36:33 03/19/2021 11:27:41 Malignant tumor of kidney 356829197 C64.9 High cure rate from surgery alone. The pathology showed a positive vein margin but this likely does not reflect a true positive margin since there was an additional staple line beyond this. Will check a CT scan in 3 months. [id number] GET FERRARI [facility] [address] [place] [address] 06/06/2021 15:08:24 06/08/2021 11:04:23 Female stress incontinence 01288800 N39.3 Galhorn pessary removed; no erosions or lesions notedSize 7 ring pessary placed and tolerated wellshe will f/u in 2wks for pessary checkSched ule with Dr. Bermudez next available for prolapse consult Increased frequency of urination 523998956 R35.0 Send urine for culture today, will treat as indicated and call with positive result Malignant tumor of kidney 362923909 C64.9 CT chest/abd/ pelvis today without obvious concern, await radiology read and call with results [id number] GET FERRARI [facility] [address] [place] [address] 07/11/2021 14:22:54 07/12/2021 12:47:00 Female stress incontinence 50602409 N39.3 Routine pessary maintenanc e today; no erosions or lesions notedSched uled with Dr. Bermudez next month for prolapse consult Increased frequency of urination 940023008 R35.0 Unable to provide UA todaySx improved with pessary in place Malignant tumor of kidney 422526081 C64.[address] chest/abd/ pelvis w contrast from 06/06/21f/ u CT in 6mo per Dr. Squires [id number] Augusta Bermudez MD [facility] [address] [place] [address] 07/31/2021 11:46:54 08/03/2021 13:11:00 Malignant tumor of kidney 487311309 C64.[address] Noriega Female str ess incontinence 15732533 N39.3 stable Prolapse o f female genital organs 04124698 N81.9 Continue pessary size 7 for nowfu in2 months with MAx/PAIf pessary stops working she would be a candidate for vaginal repair ( colpocleis is/ vaginal repair) [id number] HANNAH Campuzano [facility] [place] [address] 09/26/2021 15:11:29 10/01/2021 09:53:51 Prolapse of female genital organs 39171648 N81.9 PVR 77 mLArea of concern for pre-erosio nPlaced 10 mcg imvexxy in vaginal apex prior to return of pessaryfol low up in [address] ess incontinence 35231248 N39.3 Malignant tumor of kidney 969037972 C64.[address] Gipson ow up in [address] priorPt due for pessary check at next visit. Recommend PA-C or nurse Nichelle Buckner to perform pessary maintenanc e at next visit with Dr. Squires. Pt travels from far away to clinic. [id number] GET FERRARI [facility] [address] [place] [address] 12/12/2021 12:54:34 12/17/2021 12:45:05 Atrophic vaginitis 69229645 N95.2 [id number] Warren Squires MD [facility] [address] [place] [address] 01/07/2022 10:31:15 01/09/2022 12:21:41 Malignant tumor of kidney 546176254 C64.9 Good news that her abdomen was clear. The mediastina l lympadenph athy is worrisome however. For this, I'll have her f/u with Med Onc. I'll have the nurse coordinato r help with this. Her next imaging will be dependent on Med Onc input. We will likely repeat imaging in 3-6 months. Health Concerns Section Related Observation LastModified by Organization Detai ls LastModified Time None Recorded Concern Status LastModified by Organization Details LastModified Time None Recorded Advance Directives Directive None Recorded Payers Encounter Date Sequence Insurance Name Policy Number Policy Rivers Covered Member ID Rivers Member ID Guarantor Name 07/11/2021 1 [employer] [id number] Nancy Cummins Piper [id number] Nancy Piper 07/31/2021 1 [place] [id number] [place] L Piper [id number] [place] Piper 09/26/2021 1 [place] [id number] [place] L Piper [id number] [place] Piper 12/12/2021 1 [place] [id number] [place] L Piper [id number] Nancy Piper 01/07/2022 1 [place] [id number] Nancy L Piper [id number] Nancy Piper Notes Date Note Type Note Provider Name and Address Organization Details Recorded Time 07/11/2021 text/html Nancy is an 85yo female who presents today for pessary check and recheck mixed urinary incontinence. Galhorn pessary removed and replaced with size 7 ring pessary at last visit and she reports this has been working quite well for her. Still some mild stress incontinence but her leakage is significantly better. Denies any abnormal discharge, odor, pain or bleeding with the pessary in place. unable to provide sample for UA todayRandom bladder scan is 85cc From last visit on 06/06/21:Nancy is an 85yo female here today for evaluation of urinary leakage, stress incontinence. Has noted urinary stress incontinence since surgery. Did have some urinary frequency initially but this improved. Pessary placed by her mechatronics technician 1mo ago, she notes some mild improvement in her stress incontinence but improvement in pelvic pressure with pessary in place. No bleeding, pain, discharge since placement. She denies any dysuria. Had a left nephrectomy and colectomy with Dr. Squires at [facility] on 02/22/21. Did quite well postoperatively. Hx: colon cancer, left renal mass CT chest/abd/pelvis w contrast from 06/04-- without obvious concern, await radiologist read and call with results UA today negative, straight cathPVR 5cc Grade III-IV cystocele and rectocele noted on examStill has uterus GET FERRARI [address], [place], [address], [place] [facility] 07/11/2021 15:02:26 07/31/2021 text/html Pt of max for PO P ( cystocele/enteroecl e garde 4, uterine prolapse grade 3 Max removed Galhorn pessary and replaced with size 7 ring pessary at last visit and she reports this has been working quite well for her. Had a left nephrectomy and colectomy with Dr. Squires at [facility] on 02/22/21 for 4 cm RCC and colon CA. Today I did cysto ( normal); removed and cleaned the pessary size 7. Augusta Bermuedz MD [address] [place] [address],[address], [place], [address], [facility] 07/31/2021 13:20:18 09/26/2021 text/html [place] 85F here fo r pessary maintenance. She was referred to female urology after placement of Gellhorn pessary at outside practice became too uncomfortable. She was fit with size 7 ring pessary. Exam noted for cystocele/enterocel e grade IV, uterine prolapse grade III. Cystoscopy on 07/31/21 normal. She is interested in possible prolapse repair in the future. Dr. Bermudez recommended vaginal repair vs. colpoclesis. She denies any concerns with pessary. Some worsening of urinary urgency. S/p nephrectomy and colectomy with Dr. Squires at [facility] on 02/22/21 for 4 cm RCC and colon CA. CT 06/06/21 showed no recurrence of cancer. She is due for follow up with Dr. Squires in November 2021. HANNAH Campuzano [address] [place] [address],[address], [address], [facility] 09/26/2021 17:46:36 01/07/2022 text/html Here to f/u for her kidney cancer. She had a CT scan last month that showed a clear renal fossa and retroperitoneum. There was, however, mediastinal lymphadenopathy; max size 7mm. She is active and overall healthy. She has a grandmother that lived to [facility]. Warren Squires MD [address] [place] [address],[address], [place], [address], [facility] 01/07/2022 12:28:48 OBGyn Episode No OBEpisode recorded.
--- NOTE | 2024-08-31 18:23 | ED.GENADULT ---
HPI - General Adult General Chief complaint: Neuro Symptoms/Altered Deficit Stated complaint: Possible CVA Time Seen by Provider: 08/31/24 18:23 History of Present Illness HPI narrative: Patient here today with left sided weakness , cloudy mind , and difficulty speaking about 30 minutes ago. She actually lowered herself to the floor of her apartment at [facility] because her left leg was weak. Upon presentation to the ER, her symptoms resolved with the exception of some improving leg weakness. She is able to stand and pivot to the chair. [age] year old woman presenting to the emergency department with difficulty speaking and left leg weakness. Apparently also left arm weakness. She reports between 5 and 530 which is about an hour prior to this interview, she had been exercising and got off the exercise machine/treadmill and just felt like something was not right. She was feeling like things were maybe dizzy and increasing weakness in her left leg and then left arm. She lowered herself to the floor or maybe fell a little bit not hitting her head. She did try to place phone calls but had to do it from the floor using her right arm to dial back. Apparently then was slurring her speech as well. This is mostly back to normal. Her left arm was notably clumsy. She still feels like her left arm isn't quite back to full strength and her left leg feels funny she indicates the inner aspect of the leg. Was having a very active morning/day until this event. Notes herself to be in good health. Denies actual pain in her left leg but thought that maybe something was off due to a pessary. Later conversation with daughter reveals a couple days ago tripping on her apartment but does not appear that she had sustained any injury. Related Data Home Medications ?Medication ?Instructions ?Recorded ?Confirmed multivitamin 1 tab PO QAM 02/13/22 07/15/24 acetaminophen 325 mg capsule 325 mg PO ONCE PRN 08/22/22 07/15/24 (Tylenol) cholecalciferol (vitamin D3) 25 50 mcg PO QDAY 01/27/23 07/15/24 mcg (1,000 unit) capsule ferrous sulfate 325 mg (65 mg 325 mg PO QDAY PRN 06/30/23 07/15/24 iron) tablet ibuprofen 200 mg tablet (Advil) 200 mg PO Q6H PRN 06/30/23 07/15/24 cetirizine 10 mg chewable tablet 10 mg PO QDAY PRN 01/14/24 07/15/24 (Zyrtec) fluticasone propionate 50 1 spray intranasal QDAY PRN 01/14/24 07/15/24 mcg/actuation nasal spray,suspension Previous Rx's ?Medication ?Instructions ?Recorded estradiol 0.01% (0.1 mg/gram) 0.5 g vaginal 2XW #42.5 grams 12/02/23 vaginal cream (Estrace) Allergies Allergy/AdvReac Type Severity Reaction Status Date / Time No Known Drug Allergies Allergy Verified 08/31/24 19:37 Review of Systems Status of ROS: Reports: 6 or more systems reviewed and unremarkable except as noted in History and below [facility] Medical History Cataracts, bilateral ?H26.9 - Unspecified cataract (ICD-10) Renal cell cancer ?C64.9 - Malignant neoplasm of unspecified kidney, except renal pelvis (ICD-10) Vaginal pessary in situ ?Z96.0 - Presence of urogenital implants (ICD-10) Osteopenia (2010) ?M85.80 - Other specified disorders of bone density and structure, unspecified site (ICD-10) 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 ?R32 - Unspecified urinary incontinence (ICD-10) Impaired swallowing ?R13.10 - Dysphagia, unspecified (ICD-10) History of fracture of forearm ?Z87.81 - Personal history of (healed) traumatic fracture (ICD-10) Surgical History History of cataract surgery (~03/2022) ?Z98.49 - Cataract extraction status, unspecified eye (ICD-10) History of left nephrectomy (02/22/21) ?Z90.5 - Acquired absence of kidney (ICD-10) History of colectomy (02/22/21) ?Z90.49 - Acquired absence of other specified parts of digestive tract (ICD-10) History of breast biopsy (06/28/11) ?Z98.890 - Other specified postprocedural states (ICD-10) Family History Father Rheumatic fever Brother Rheumatoid arthritis Social History Narrative: , retired,independant living, 2 adult kids, lives in Exercises 3 times a week, 20 min walking , [employer], [employer] Non-smoker Rarely consumes alcohol Smoking Status: Never smoker Do you use any of these nicotine containing products: None How often do you have a drink containing alcohol: never How often do you have six or more drinks on one occasion: Never AUDIT-C Alcohol total score: 0 Non-prescribed substance use: denies use Caffeine: No Are you using contraception or practicing any form of control: No service: No Exam Narrative: Exam Narrative: Very pleasant. NAD. Subtle affectation to her speech. GCS 15. Cranial nerves 2-12 to be intact. Moving all extremities without difficulty. Maybe subtly weak in the left arm and leg versus the right. Heart appears to be having some ectopic beats. But in a regular rate. Abdomen is protuberant soft nontender. Lungs are clear. Sensation intact but feels strange she reports inside her left leg. Const: Vital Signs, click to edit/add: Vital Signs - 24 hr 08/31/24 18:08 08/31/24 19:55 08/31/24 20:38 Temperature 97.7 F Pulse Rate Pulse Rate [Pulse Oximeter] 91 Respiratory Rate 18 7 L Blood Pressure Blood Pressure [Le ft Upper Arm] 100/72 Pulse Oximetry 95 93 Oxygen Delivery Me thod Room Air 08/31/24 20:40 08/31/24 20:44 08/31/24 20:45 Temperature Pulse Rate Pulse Rate [Pulse Oximeter] Respiratory Rate 7 L 11 L Blood Pressure Blood Pressure [Le ft Upper Arm] Pulse Oximetry 95 Oxygen Delivery Me thod 08/31/24 20:52 08/31/24 21:00 08/31/24 21:09 Temperature Pulse Rate 90 94 104 H Pulse Rate [Pulse Oximeter] Respiratory Rate 4 L 7 L 14 Blood Pressure 160/67 H 163/109 H Blood Pressure [Le ft Upper Arm] Pulse Oximetry 97 98 100 Oxygen Delivery Me thod 08/31/24 21:15 08/31/24 21:20 08/31/24 21:21 Temperature Pulse Rate 94 87 87 Pulse Rate [Pulse Oximeter] Respiratory Rate 27 H 10 L 27 H Blood Pressure 166/73 H Blood Pressure [Le ft Upper Arm] Pulse Oximetry 96 94 98 Oxygen Delivery Me thod 08/31/24 21:30 08/31/24 21:45 08/31/24 22:00 Temperature Pulse Rate 86 79 78 Pulse Rate [Pulse Oximeter] Respiratory Rate 12 7 L 15 Blood Pressure Blood Pressure [Le ft Upper Arm] Pulse Oximetry 96 96 95 Oxygen Delivery Me thod 08/31/24 22:05 08/31/24 22:15 08/31/24 22:30 Temperature Pulse Rate 79 80 81 Pulse Rate [Pulse Oximeter] Respiratory Rate Blood Pressure 158/97 H Blood Pressure [Le ft Upper Arm] Pulse Oximetry 93 94 96 Oxygen Delivery Me thod Documenting provider has reviewed patient's vital signs: yes Course Vital Signs Vital signs: Initial Vital Signs Temperature 97.7 F 08/31/24 18:08 Temperature Source Temporal Artery Scan 08/31/24 18:08 Pulse Rate 91 08/31/24 18:08 Respiratory Rate 18 08/31/24 18:08 Blood Pressure 100/72 08/31/24 18:08 Blood Pressure Mean 81 08/31/24 18:08 Blood Pressure Position Sitting 08/31/24 18:08 Pulse Oximetry 95 08/31/24 18:08 Oxygen Delivery Method Room Air 08/31/24 18:08 Vital Signs Temperature 97.7 F 08/31/24 18:08 Pulse Rate 91 08/31/24 18:08 Respiratory Rate 18 08/31/24 18:08 Blood Pressure 100/72 08/31/24 18:08 Pulse Oximetry 95 08/31/24 18:08 Oxygen Delivery Method Room Air 08/31/24 18:08 Temperature 97.7 F 08/31/24 18:08 Pulse Rate 81 08/31/24 22:30 Respiratory Rate 15 08/31/24 22:00 Blood Pressure 158/97 H 08/31/24 22:05 Pulse Oximetry 96 08/31/24 22:30 Oxygen Delivery Method Room Air 08/31/24 18:08 Medications Administered Medications: Discontinued Medications Generic Name Dose Route Start Last Admin Trade Name Freq PRN Reason Stop Dose Admin Tenecteplase 17.5 mg 08/31/24 20:11 08/31/24 20:36 Tenecteplase 5 Mg/Ml Inj 0.25 mg/kg (17.5 mg) 08/31/24 20:12 17.5 mg IVP Administration ONCE ONE Medical Decision Making MDM Narrative Medical decision making narrative: At a little over an hour after event may have experienced CVA/TIA. Ms. Quigley thinks that maybe she does need to eat but admits that she can not explain the localizing symptoms. I suppose that concurrent stress like infection could expose underlying stroke. Without MRI immediately available, will proceed to CT imaging with vascular studies. Furthermore this could have been a posterior event given the dizziness or discoordination that was initially described. Activating stroke code/cares but I do not anticipate intervention with thrombolytics given apparent rather rapid resolution. Did discuss with Stroke Neuro. This was done while Ms. Quigley was at imaging. Despite her return to interview with Stroke Neuro and in apparently had worsening of her symptoms. Had some difficulty word-finding slurring and more clear weakness in the left leg at this time. Minimal weight-bearing without pain. Recommendations were to move ahead with thrombolytics. Technique: Noncontrast CT images of the brain. Comparison: CT brain 05/27/2022. Findings: Vzjq-[id number]-damuqlnq diffuse cerebral volume loss. No mass effect or midline shift. Berry-white differentiation is maintained. Suggested bnmd-nv-[id number] chronic microvascular ischemic changes. No acute intracranial hemorrhage or pathologic extra-axial fluid collection. Intracranial atherosclerotic calcifications. Thinning of the ocular lenses. No calvarial fracture. The visualized paranasal sinuses and mastoid air cells are clear. Impression: No acute intracranial hemorrhage or mass effect. Please note that all CT scans at this facility use dose modulation, iterative reconstruction, and/or weight-based dosing when appropriate to reduce radiation dose to as low as reasonably achievable. Dictated by Nicholas Gastelum MD @ 08/31/2024 7:42:44 PM Study:?CT-Head Angio W/ 95CC ISOVUE 370-08/31/2024 7:29:21 PM Ordering Physician:Anatoly Aquino Preliminary Report: No proximal large vessel occlusion. Mild (less than 50 percent) proximal right cervical internal carotid artery stenosis. Read by:?Nicholas Gastelum MD @08/31/2024 7:47:03 PM Study:?CT-Neck Angio Angio W/ 95CC ISOVUE 370-08/31/2024 7:29:54 PM Ordering Physician:?Mason Aquino Preliminary Report: No proximal large vessel occlusion. Mild (less than 50 percent) proximal right cervical internal carotid artery stenosis. Read by:?Nicholas Gastelum MD @08/31/2024 7:47:14 PM Family patient did decide to move ahead with thrombolytics. This has been initiated. Does look like she might have a urinary tract infection as well. Has been accepted to admission to [facility]. Pending transport at this time. With apparently positive urine and more symptoms of urgency and feeling like she may have wet the bed, have ordered g of Rocephin. Also feeling like she is having lessening of her Medical Records Medical records reviewed: Yes I reviewed the patient's medical records Lab Data Lab results reviewed: Yes I reviewed the patient's lab results Labs: Lab Results 08/31/24 08/31/24 08/31/24 Range/Units 18:49 19:05 19:05 WBC 7.99 (4.50-11.00) K/uL RBC 4.22 (4.00-5.20) m/uL Hgb 12.2 (12.0-16.0) gm/dL Hct 37.0 (33.0-51.0) % MCV 88 (80-100) fL MCH 29 (26-34) pg MCHC 33 (32-36) gm/dL RDW Coeff of Hoda 13.1 (11.5-15.5) % Plt Count 264 (140-440) K/uL Neut % (Auto) 74.9 H (42.0-72.0) % Lymph % (Auto) 13.9 L (20-44) % [place] % (Auto) 9.3 (0.0-11.0) % Eos % (Auto) 1.4 (0.0-7.0) % Baso % (Auto) 0.4 (0.0-3.0) % Neut # (Auto) 6.00 (1.7-7.0) K/uL Lymph # (Auto) 1.10 (0.90-2.90) K/uL [place] # (Auto) 0.70 (0.00-0.90) K/UL Eos # (Auto) 0.11 (0.00-0.50) K/uL Baso # (Auto) 0.03 (0.00-0.30) K/uL Abs Immat Gran (auto) 0.01 (0.00-0.30) K/uL Imm/Tot Granulo (auto) 0.1 % INR 0.94 (0.91-1.10) APTT 28 (23-33) Seconds Sodium 134 L (135-149) mmol/L Potassium 3.9 (3.6-5.1) mmol/L Chloride 99 (96-114) mmol/L Carbon Dioxide 28 (20-32) mmol/L Anion Gap 7 (7-15) mEq/L BUN 15 (7-30) mg/dL Creatinine 0.8 (0.5-1.5) mg/dL Estimated Creat Clear 31.35 Estimated GFR 71 ml/min Glucose 107 (60-115) mg/dL Calcium 9.0 (8.4-10.6) mg/dL Troponin I < 0.01 L Cancelled (0.01-0.04) ng/mL Urine Color (Yellow) Urine Appearance (Clear) Urine pH (5.0-8.5) Ur Specific Ramer (1.000-1.030) Urine Protein (Negative) Urine Glucose (UA) (Negative) Urine Ketones (Negative) Urine Blood (Negative) Urine Nitrite (Negative) Urine Bilirubin (Negative) Urine Urobilinogen (0.2-1.0) Ur Leukocyte Esterase (Negative) Urine RBC (0-2) Urine WBC (0-5) Ur Squamous Epith Cells (None-Few) Urine Bacteria (None) POC Troponin I 0.00 L (0.01-0.04) ng/ml 08/31/24 Range/Units Unknown WBC (4.50-11.00) K/uL RBC (4.00-5.20) m/uL Hgb (12.0-16.0) gm/dL Hct (33.0-51.0) % MCV (80-100) fL MCH (26-34) pg MCHC (32-36) gm/dL RDW Coeff of Hoda (11.5-15.5) % Plt Count (140-440) K/uL Neut % (Auto) (42.0-72.0) % Lymph % (Auto) (20-44) % [place] % (Auto) (0.0-11.0) % Eos % (Auto) (0.0-7.0) % Baso % (Auto) (0.0-3.0) % Neut # (Auto) (1.7-7.0) K/uL Lymph # (Auto) (0.90-2.90) K/uL [place] # (Auto) (0.00-0.90) K/UL Eos # (Auto) (0.00-0.50) K/uL Baso # (Auto) (0.00-0.30) K/uL Abs Immat Gran (auto) (0.00-0.30) K/uL Imm/Tot Granulo (auto) % INR (0.91-1.10) APTT (23-33) Seconds Sodium (135-149) mmol/L Potassium (3.6-5.1) mmol/L Chloride (96-114) mmol/L Carbon Dioxide (20-32) mmol/L Anion Gap (7-15) mEq/L BUN (7-30) mg/dL Creatinine (0.5-1.5) mg/dL Estimated Creat Clear Estimated GFR ml/min Glucose (60-115) mg/dL Calcium (8.4-10.6) mg/dL Troponin I (0.01-0.04) ng/mL Urine Color Yellow (Yellow) Urine Appearance Clear (Clear) Urine pH 7.0 (5.0-8.5) Ur Specific Ramer 1.015 (1.000-1.030) Urine Protein Negative (Negative) Urine Glucose (UA) Negative (Negative) Urine Ketones Negative (Negative) Urine Blood Trace-intact A (Negative) Urine Nitrite Positive A (Negative) Urine Bilirubin Negative (Negative) Urine Urobilinogen 0.2 (0.2-1.0) Ur Leukocyte Esterase 1+ A (Negative) Urine RBC 2-5 A (0-2) Urine WBC 5-10 A (0-5) Ur Squamous Epith Cells None (None-Few) Urine Bacteria Many A (None) POC Troponin I (0.01-0.04) ng/ml ECG Data Attestation: I personally reviewed and interpreted this ECG as follows: (Sinus at 92. Right bundle-branch, 1st degree AV block) Discharge Plan Discharge Clinical Impression: CVA (cerebral vascular accident), Cystitis Patient Disposition: [facility] Condition: Stable Prescriptions: No Action multivitamin Tablet 1 tab PO QAM cholecalciferol (vitamin D3) 25 mcg (1,000 unit) capsule 50 mcg PO QDAY cetirizine [Zyrtec] 10 mg tablet,chewable 10 mg PO QDAY PRN acetaminophen [Tylenol] 325 mg capsule 325 mg PO ONCE PRN ferrous sulfate 325 mg (65 mg iron) tablet 325 mg PO QDAY PRN ibuprofen [Advil] 200 mg tablet 200 mg PO Q6H PRN estradiol [Estrace] 0.01 % (0.1 mg/gram) cream 0.5 g vaginal 2XW Qty: 42.5 3RF Rx Instructions: Use nightly for 2 weeks, then twice weekly. May apply with finger. fluticasone propionate 50 mcg/actuation spray,suspension 1 spray intranasal QDAY PRN Rx Instructions: administer into each nostril Stand Alone Forms: [facility] Info Instructions
--- NOTE | 2024-08-31 18:43 | CRLHL7_ITS ---
For Patients: As a result of the Century Cures Act, medical imaging exams and procedure reports are released immediately into your electronic medical record. You may view this report before your referring provider. If you have questions, please contact your health care provider. DATE: 08/31/2024 CLINICAL HISTORY: Patient with focal neurological deficits. TECHNIQUE: Standard helical CT image acquisition through the intracranial circulation following intravenous administration of contrast material with bolus tracking. 2D and 3D MIP images for post-processing were performed and interpreted on an independent workstation and 3D images were permanently archived. COMPARISON: CT same day. FINDINGS: There is no cerebral aneurysm or large vessel occlusion. There is intracranial atherosclerosis with a focal severe stenosis in the left P2 segment. The right internal carotid artery is normal. The right middle cerebral artery and its branches are normal. The right anterior cerebral artery and its branches are normal. The left internal carotid artery is normal. The left middle cerebral artery and its branches are normal. The left anterior cerebral artery and its branches are normal. The anterior communicating artery is well visualized and appears normal. The right vertebral artery and PICA are normal. The left vertebral artery and PICA are normal. The vertebral arteries are codominant. The basilar artery is patent and appears normal. The right posterior cerebral artery is normal. The left posterior cerebral artery is normal. The visualized venous structures are patent. IMPRESSION: 1. No cerebral aneurysm or large vessel occlusion. 2. Intracranial atherosclerosis with a focal severe stenosis in the left P2 segment. Please note that all CT scans at this facility use dose modulation, iterative reconstruction, and/or weight-based dosing when appropriate to reduce radiation dose to as low as reasonably achievable. Dictated by Stephani Vega MD @ 09/01/2024 11:35:21 AM (Electronically Signed)
--- NOTE | 2024-08-31 18:43 | CRLHL7_ITS ---
For Patients: As a result of the Century Cures Act, medical imaging exams and procedure reports are released immediately into your electronic medical record. You may view this report before your referring provider. If you have questions, please contact your health care provider. DATE: 08/31/2024 CLINICAL HISTORY: Patient with focal neurological deficits. TECHNIQUE: Standard helical CT image acquisition of the neck up to the skull base after bolus intravenous contrast enhancement. 2D and 3D MIP images for post-processing were performed and interpreted on an independent workstation and 3D images were permanently archived. COMPARISON: CT same day. FINDINGS: The origins of the great vessels from the aortic arch are patent. The origin of the right vertebral artery is patent. The origin of the left vertebral artery is patent. The common carotid arteries are patent. There is no stenosis at the origin of the right internal carotid artery. There is no stenosis at the origin of the left internal carotid artery. The rest of the cervical segments of the internal carotid arteries are patent up to the skull base. The vertebral arteries are codominant. The cervical segments of the vertebral arteries are patent up to the skull base. The visualized lung apices are unremarkable. The thyroid gland is unremarkable. The soft tissues of the neck are unremarkable. There are degenerative changes in the cervical spine. IMPRESSION: Patent cervical vasculature. Please note that all CT scans at this facility use dose modulation, iterative reconstruction, and/or weight-based dosing when appropriate to reduce radiation dose to as low as reasonably achievable. Dictated by Stephani Veag MD @ 09/01/2024 11:32:27 AM (Electronically Signed)
--- OUTSIDE RECORDS SUMMARY | 2024-08-31 18:53 | XMS_ITS | CCD ---
Author Name Interface, [id number] lity Address [address] [id number] [facility] Address [address] [place] [address] Care Team Providers Care Yarn Spinner Name Role Phone Bart Hutchins Unavailable Unavailable Reason for Visit Social History Date Name Value 02/04[birth year]22 Sex Female
--- OUTSIDE RECORDS SUMMARY | 2024-08-31 18:53 | XMS_ITS | CCD ---
Author Name Interface, [id number] lity Address [address] [facility] [address] [id number] [facility] Address [address] [facility] [address] [place] [address] Care Team Providers Care Ladle Operator Name Role Phone Bart Hutchins Unavailable Unavailable Reason for Visit Social History Date Name Value 02/04[birth year]22 Sex Female
[2024-08-31 19:16] LABS: Basophils Absolute Auto 0.03 K/uL (0.00-0.30); Basophils Percent Auto 0.4 % (0.0-3.0); Eosinophils Absolute Auto 0.11 K/uL (0.00-0.50); Eosinophils Percent Auto 1.4 % (0.0-7.0); Hemoglobin* 12.2 gm/dL (12.0-16.0); Immature Granulocytes Abs Auto 0.01 K/uL (0.00-0.30); Immature Granulocytes Pct Auto 0.1 %; Lymphocytes Percent Auto 13.9 % (20-44); Mean Corpuscular HGB Conc 33 gm/dL (32-36); Mean Corpuscular Hemoglobin 29 pg (26-34); Mean Corpuscular Volume 88 fL (80-100); Monocytes Percent Auto 9.3 % (0.0-11.0); Neutrophils Percent Auto 74.9 % (42.0-72.0); Platelet Count* 264 K/uL (140-440); RDW Coefficient of Variation % 13.1 % (11.5-15.5); Red Blood Count 4.22 m/uL (4.00-5.20); Slide Review Reflex No; White Blood Count* 7.99 K/uL (4.50-11.00)
[2024-08-31 19:31] LABS: Chloride* 99 mmol/L (96-114); Sodium* 134 mmol/L (135-149)
[2024-08-31 19:32] LABS: Potassium* 3.9 mmol/L (3.6-5.1)
[2024-08-31 19:34] LABS: Anion Gap 7 mEq/L (7-15); Blood Urea Nitrogen* 15 mg/dL (7-30); Carbon Dioxide* 28 mmol/L (20-32); Creatinine* 0.8 mg/dL (0.5-1.5); Est. Creatinine Clearance* 31.35; Estimated Glomerular Filt Rate 71 ml/min
[2024-08-31 19:35] LABS: Glucose* 107 mg/dL (60-115); INR 0.94 (0.91-1.10); Partial Thromboplastin Time* 28 Seconds (23-33); Prothrombin Time 13.4 Seconds
[2024-08-31 19:52] LABS: Troponin I* < 0.01 ng/mL (0.01-0.04)
[2024-08-31 20:00] LABS: Appearance Urine Clear (Clear); Bilirubin Urine Negative (Negative); Blood Urine Trace-intact (Negative); Color Urine Yellow (Yellow); Glucose Urine Negative (Negative); Ketones Urine Negative (Negative); Leukocyte Esterase Urine 1+ (Negative); Nitrite Urine Positive (Negative); Protein Urine Negative (Negative); Specific Gravity Urine 1.015 (1.000-1.030); Urobilinogen Urine 0.2 (0.2-1.0)
[2024-08-31 20:26] LABS: Bacteria Urine Many
[2024-08-31] MEDS: TENECTEPLASE 5 MG/ML inj 17.5 MG IVP (20:36)
[2024-08-31] MEDS: cefTRIAXone 1 GM in 0.9 % SODIUM CHLORIDE Mini-bag 100 ML IVPB (23:00)
== END 2024-08-31 23:17 | disposition short-term general hospital (02) ==
PROVIDERS: Emergency Provider Family Medicine; PCP Family Medicine
DX: I63.9 Cerebral infarction, unspecified (principal); N30.90 Cystitis, unspecified without hematuria
CPT/HCPCS: 36415; 70450; 70496; 70498; 80048; 81001; 82565; 84484; 85025; 85610; 85730; 87086; 93005; 94761; 96365; 96375; 99284; 99285; J0696; J3101; Q9967

== ENCOUNTER 2024-08-31 23:05 | Outpatient (CLI) | payer MEDICARE, SELFPAY | END 2024-08-31 23:06 | disposition home or self-care (01) | LOC: AMB 09-01 16:21 | PROVIDERS: PCP Family Medicine; Visit Provider Emergency Medicine | DX: R53.1 Weakness (principal); R47.81 Slurred speech | CPT/HCPCS: A0425; A0429 ==

== ENCOUNTER 2024-09-15 15:22 | Outpatient (CLI) | payer MEDICARE, SELFPAY | END 2024-09-15 15:23 | disposition home or self-care (01) | PROVIDERS: PCP Family Medicine; Visit Provider Family Medicine | DX: E55.9 Vitamin D deficiency, unspecified (principal); E03.9 Hypothyroidism, unspecified; R53.1 Weakness; I63.9 Cerebral infarction, unspecified | CPT/HCPCS: 80048; 84443 ==

== ENCOUNTER 2024-09-21 14:19 | Outpatient (RCR) | payer MEDICARE, SELFPAY ==
--- NOTE | 2024-09-21 15:51 | OT.OPGNE2 ---
OT Outpatient General/Neuro Eval OT Outpatient General/Neuro Eval* Start: 09/21/24 14:26 Freq: Status: Active Protocol: Document 09/21/24 14:26 CSS (Rec: 09/21/24 15:50 CSS [id number]) E-signed By Ruby Riley OTR/L OT Outpatient Evaluation Details Type Type Eval Complexity Low Insurance Information Insurance Information Insurance Information Blue Cross/Blue Shield, Medicare B Outpatient History/Precautions Current Condition Referring Provider Dr. Golden Medical Diagnoses I63.9- Cerebral infarction, unspecified Treatment Diagnoses Z91.89- Potential for cognitive impairment Medical/Functional History Medical History Reviewed Yes Prior Level of Function/Mobility Pt had CVA on September 01. Pt had IP therapy and now back home. At baseline indep with ADLs and IADLs; Pt now uses 4ww after CVA. Pt reports works out at [facility]. Pt has not driven yet since CVA. Social History Type of Dwelling [facility] at [facility] Lives With: Alone Patient Subjective Subjective Patient Subjective Pt does not feel she needs therapy; she does not want to work on [employer]. Reports she has no concerns with LUE. Pt's dtr reports she feels pt is close to baseline with cognitive testing. Pain Assessment Pain Pain No Objective Measures Shoulder Shoulder BUE WNL Elbow Elbow BUE WNL Wrist Wrist BUE WNL Hand Hand BUE WNL Hand Pinch/House Furnishings Supervisor Strength Hand Pinch/House Furnishings Supervisor Strength Hand Pinch/House Furnishings Supervisor Strength Left Hand,Right Hand Left Hand House Furnishings Supervisor Strength Position 1 in Elbow 33 Flexion (lbs) Lateral Pinch Strength (lbs) 8 Right Hand House Furnishings Supervisor Strength Position 1 in Elbow 40 Flexion (lbs) Lateral Pinch Strength (lbs) 9 Comments Comments Pt has symmetrical B shoulder and elbow MMT. 9 hole peg test: R: 25.58 seconds L: 34.65 Sensation Assessment Sensation Assessment Side Sensation Assessment Side Left Side,Right Side Left Side Comment denies N/T Right Side Comment denies N/T Cognitive Assessments Performed Cognitive Assessments Performed Vega Cognitive Assessment (MOCA) Results Administered MOCA to assess cognition. Pt scored: 16/30 indicating mod/severe decline. Vision/Hearing Vision Vision Changes Comments Pt declines vision changes since CVA Assessment Assessment Assessment Pt is an 88 year old female who is referred to OT after CVA due to concerns with L sided weakness, cog impairment , and concerns with driving. Per today's assessment, pt is WNL for strength and AROM for LUE. Pt notes no concerns with function in LUE. Pt scores 16 /30 on MOCA indicating moderate/severe cog impairment ; pt denies concerns and pt's dtr feels she is at baseline. OT recommends cog rehab to help increase execuetive functioning and visuospatial skills. Also recommend driving assessment before pt returns back to driving. Pt is very resistive to OT and does not feel she needs at this time. She is also is not receptive to assessment of driving skills. Occupational Therapy Treatment Plan - OP Potential Rehabilitation Potential Fair Set Goals Goals Set with Patient Yes Goals Goals Goals to be met by Nov 16 2024: 1) Pt to participate in OP driving assessment to help determine level of safety with driving and if pt can return back to driving. 2) Pt to increase overall cog functioning as indicated by scored greater than 20/30 on MOCA. 3) Pt will complete simple money management task with no errors in order to demonstrate appropriate functional cognitive processing. 4) Pt will verbalize completion of HEP in order to progress towards goals. Treatment Plan Treatment Plan Evaluation,Therapeutic Exercise,Therapeutic Activities,Self-Care/Home Management,Caregiver Training, Education Expected Frequency 1-2x Week Expected Duration 8-10 Weeks Certification Certification Statement I Certify That: Therapy Services Provided, Therapy Plan Established, Therapy Plan Reviewed Certification Information Clinic ID # [id number] Initial Certification Date 09/21/24 Recertification Due Date 11/16/24 Provider Signature Required Yes Provider Signature Shows Agreement With POC & Medical Necessity Physician NPI Number Write NPI# Here Physician Comment/Change Comment or Changes Physician Signature & Date Requested Please Sign/Date Here
== END 2025-01-19 23:59 | disposition home or self-care (01) ==
PROVIDERS: PCP Family Medicine; Visit Provider Family Medicine
DX: I63.9 Cerebral infarction, unspecified (principal); R29.898 Other symptoms and signs involving the musculoskeletal system; Z91.89 Other specified personal risk factors, not elsewhere classified; Z51.89 Encounter for other specified aftercare
CPT/HCPCS: 97165

== ENCOUNTER 2024-09-29 11:52 | Outpatient (CLI) | payer MEDICARE, SELFPAY | END 2024-09-29 11:53 | disposition home or self-care (01) | LOC: NFLDREF 10-04 03:12 | PROVIDERS: PCP Family Medicine; Referring Provider Family Medicine; Visit Provider Family Medicine | DX: E87.1 Hypo-osmolality and hyponatremia (principal) | CPT/HCPCS: 80048 ==

== ENCOUNTER 2024-10-07 16:02 | Outpatient (CLI) | payer MEDICARE, SELFPAY | END 2024-10-07 16:03 | disposition home or self-care (01) | LOC: NFLDREF 10-10 19:28 | PROVIDERS: PCP Family Medicine; Referring Provider Family Medicine; Visit Provider Family Medicine | DX: E78.5 Hyperlipidemia, unspecified (principal); E87.1 Hypo-osmolality and hyponatremia; E55.9 Vitamin D deficiency, unspecified; M85.89 Other specified disorders of bone density and structure, multiple sites | CPT/HCPCS: 80053; 80061; 82306 ==

== ENCOUNTER 2025-01-05 13:30 | Outpatient (RCR) | payer MEDICARE, SELFPAY ==
[2025-01-05 14:04] LABS: Hematocrit 35.8 % (33.0-51.0); Hemoglobin* 11.9 gm/dL (12.0-16.0); Immature Granulocytes Abs Auto 0.01 K/uL (0.00-0.30); Immature Granulocytes Pct Auto 0.1 %; Lymphocytes Absolute Auto 1.44 K/uL (0.90-2.90); Mean Corpuscular HGB Conc 33 gm/dL (32-36); Mean Corpuscular Hemoglobin 29 pg (26-34); Mean Corpuscular Volume 88 fL (80-100); RDW Coefficient of Variation % 12.6 % (11.5-15.5); Red Blood Count 4.06 m/uL (4.00-5.20); White Blood Count* 6.70 K/uL (4.50-11.00)
[2025-01-05 14:18] LABS: Chloride* 101 mmol/L (96-114)
[2025-01-05 14:19] LABS: Albumin* 3.8 g/dL (3.3-5.0); Potassium* 3.8 mmol/L (3.6-5.1); Sodium* 136 mmol/L (135-149)
[2025-01-05 14:22] LABS: Alanine Aminotransferase* 16 U/L (4-35); Alkaline Phosphatase* 74 U/L (40-150); Anion Gap 5 mEq/L (7-15); Aspartate Amino Transferase* 30 U/L (12-35); Bilirubin Total* 0.4 mg/dL (0.1-1.5); Blood Urea Nitrogen* 13 mg/dL (7-30); Calcium* 8.9 mg/dL (8.4-10.6); Carbon Dioxide* 30 mmol/L (20-32); Creatinine* 0.8 mg/dL (0.5-1.5); Estimated Glomerular Filt Rate 71 ml/min; Glucose* 88 mg/dL (60-115); Total Protein* 6.9 g/dL (6.0-8.3)
[2025-01-05 14:26] LABS: Slide Review Reflex No
[2025-01-08 04:50] LABS: Carcinoembryonic Antigen 2.7 ng/mL
== END 2025-01-11 23:59 | disposition home or self-care (01) ==
LOC: CCIC 13:30
PROVIDERS: PCP Family Medicine; Referring Provider Family Medicine; Visit Provider Physician Assistant
DX: C18.9 Malignant neoplasm of colon, unspecified (principal); C64.2 Malignant neoplasm of left kidney, except renal pelvis
CPT/HCPCS: 36415; 80053; 82378; 85025; 99214; G0463

== ENCOUNTER 2025-03-15 09:04 | Outpatient (CLI) | payer MEDICARE, SELFPAY ==
--- NOTE | 2025-03-15 10:56 | P.ANES_ITS ---
Anesthesia Charges Start Date/Time Anesthesia Start Date: 03/15/25 Anesthesia Start Time: 10:29 Stop Date/Time Anesthesia Stop Date: 03/15/25 Anesthesia Stop Time: 10:54 Summary Extremes of Age - Over 70 or under 1: GOLF CLUB WEIGHER Coding CPT Codes CPT Codes: ANES LWR INTST NDSC NOS - 05033 ([id number]) P3 - PATIENT W/SEVERE SYS DISEASE, QK - PIANO CASE AND BENCH ASSEMBLER 2-4 CNCRNT ANES PROC, QX - GOLF CLUB WEIGHER SVC W/ MD MED DIRECTION Additional Codes: Summary - Extremes of Age - Over 70 or under 1: GOLF CLUB WEIGHER ([id number])
--- NOTE | 2025-03-15 10:56 | W.ANESCHARGE ---
Anesthesia Charges Start Date/Time Anesthesia Start Date: 03/15/25 Anesthesia Start Time: 10:29 Stop Date/Time Anesthesia Stop Date: 03/15/25 Anesthesia Stop Time: 10:54 Summary Extremes of Age - Over 70 or under 1: KNIFE FINISHER Coding CPT Codes CPT Codes: ANES LWR INTST NDSC NOS - 05029 ([id number]) P3 - PATIENT W/SEVERE SYS DISEASE, QK - LETTER OF CREDIT CLERK 2-4 CNCRNT ANES PROC, QX - KNIFE FINISHER SVC W/ MD MED DIRECTION Additional Codes: Summary - Extremes of Age - Over 70 or under 1: KNIFE FINISHER ([id number])
--- NOTE | 2025-03-15 11:22 | W.ANESCHARGE ---
Anesthesia Charges Start Date/Time Anesthesia Start Date: 03/15/25 Anesthesia Start Time: 10:29 Stop Date/Time Anesthesia Stop Date: 03/15/25 Anesthesia Stop Time: 10:54 Summary Extremes of Age - Over 70 or under 1: MDA Coding CPT Codes CPT Codes: ANES LWR INTST NDSC NOS - 02660 ([id number]) QK - MINERALOGY PROFESSOR 2-4 CNCRNT ANES PROC, QX - CONTACT CENTER ENGINEER SVC W/ MD MED DIRECTION, P3 - PATIENT W/SEVERE SYS DISEASE Additional Codes: Summary - Extremes of Age - Over 70 or under 1: MDA ([id number])
== END 2025-03-15 09:05 | disposition home or self-care (01) ==
LOC: OP CLINIC 09:05
PROVIDERS: PCP Family Medicine; Visit Provider Surgery
DX: Z12.11 Encounter for screening for malignant neoplasm of colon (principal); D12.8 Benign neoplasm of rectum; K57.30 Diverticulosis of large intestine without perforation or abscess without bleeding; Z85.038 Personal history of other malignant neoplasm of large intestine; Z98.0 Intestinal bypass and anastomosis status
CPT/HCPCS: 00811; 45385; 88305; 99100; J2704